=== PATIENT | female | born 1950 | race Caucasian/White ===

== ENCOUNTER 2017-02-16 16:11 | Inpatient (IN) | payer MEDICAID ==
[2017-02-16] MEDS ORDERED: Sodium Chloride 0.9% 1,000 ML IV ONE (16:26)
[2017-02-16 16:40] LABS: BASO # 0.1 K/uL (0.0-0.2); BASO % 0.9 % (0.0-2.0); EOS # 0.1 K/uL (0.0-0.7); EOS % 0.6 % (0.0-4.0); HEMATOCRIT 38.4 % (34.0-47.0); LYMPH # 1.8 K/uL (1.0-4.3); MEAN CELL VOLUME 79.2 fL (81.0-99.0); MEAN CORPUSCULAR HEMOGLOBIN 27.2 pg (27.0-31.0); MEAN CORPUSCULAR HGB CONC 34.3 g/dL (33.0-37.0); MEAN PLATELET VOLUME 6.5 fL (7.2-11.7); MONO # 0.5 K/uL (0.0-0.8); MONO % 6.1 % (0.0-10.0); RED CELL DISTRIBUTION WIDTH 13.3 % (11.5-14.5); WHITE BLOOD COUNT 8.8 K/uL (4.8-10.8)
[2017-02-16 16:48] LABS: CHLORIDE 78 mmol/L (98-107)
[2017-02-16 16:51] LABS: ALB/GLOB RATIO 1.3 (1.0-2.1); ALKALINE PHOSPHATASE 88 U/L (38-126); ALT/SGPT 40 U/L (9-52); AST/SGOT 73 U/L (14-36); BILIRUBIN,TOTAL 0.9 mg/dL (0.2-1.3); BLOOD UREA NITROGEN 20 mg/dL (7-17); CALCIUM 8.8 mg/dl (8.6-10.4); CARBON DIOXIDE 23 mmol/L (22-30); GFR AFRICAN-AMERICAN > 60; GLUCOSE,RANDOM 87 mg/dL (65-105)
--- NOTE | 2017-02-16 17:01 | C.PDOC ---
History Of Present Illness 66-year-old female presents to the emergency department with complaints of generalized weakness and "a lot of stress in her body." Patient states she had bloodwork done recently as an outpatient, which was "normal". Patient states she suffers from "severe dehydration", and notes a history of "heart racing sometimes." Patient denies chest pain, shortness of breath, abdominal pain, nausea/vomiting/diarrhea. Time Seen by Provider: 02/16/17 16:17 Chief Complaint (Nursing): Weakness/Neurological Deficit History Per: Patient History/Exam Limitations: other (behaving bizarrely) Onset/Duration Of Symptoms: Days Current Symptoms Are (Timing): Still Present Past Medical History Reviewed: Historical Data, Nursing Documentation, Vital Signs Vital Signs: Last Vital Signs Temp 97.6 F 02/16/17 18:28 Pulse 74 02/16/17 18:28 Resp 18 02/16/17 18:28 BP 162/95 H 02/16/17 18:28 Pulse Ox 99 02/16/17 18:28 - Medical History PMH: HTN, Hyperlipidemia Family History: States: No Known Family Hx - Social History Hx Alcohol Use: No Hx Substance Use: No Review Of Systems Except As Marked, All Systems Reviewed And Found Negative. Constitutional: Positive for: Weakness. Negative for: Fever Cardiovascular: Negative for: Chest Pain, Palpitations Respiratory: Negative for: Cough, Shortness of Breath Gastrointestinal: Negative for: Nausea, Vomiting Neurological: Negative for: Weakness, Numbness, Headache, Dizziness Physical Exam - Physical Exam Appears: Non-toxic, Other (appears anxious, behaving bizarrely ) Skin: Warm, Dry, No Rash Head: Normacephalic Eye(s): bilateral: Normal Inspection, PERRL, EOMI Oral Mucosa: Moist Neck: Supple Cardiovascular: Rhythm Regular, No Murmur Respiratory: Normal Breath Sounds, No Rales, No Rhonchi, No Wheezing Gastrointestinal/Abdominal: Normal Exam, Bowel Sounds, Soft, No Tenderness Extremity: Normal ROM, No Pedal Edema, No Calf Tenderness Extremity: Bilateral: Atraumatic, Normal Color And Temperature, Normal ROM Pulses: Left Dorsalis Pedis: Normal, Right Dorsalis Pedis: Normal Neurological/Psych: Oriented x3, Other (bizarre, pressured affect) ED Course And Treatment - Laboratory Results Result Diagrams: 02/16/17 16:37 02/16/17 16:37 ECG: Interpreted By Me, Viewed By Me (sinus rhythm 75 bpm, PVCs, normal axis, RBBB, no acute ST changes) ECG Interpretation: Abnormal O2 Sat by Pulse Oximetry: 97 (ra) Pulse Ox Interpretation: Normal Progress Note: Blood work, UA, UDS, EKG ordered and reviewed. Patient given initial IV NS bolus. Patient refused CXR when tech arrives, because she does not know "if it will be covered by insurance". 5:35pm- Discussed patient with insurance plan specialist Dr. Charles, since she appears very anxious and bizarre with pressured speech, this could be AMS due to hyponatremia - he recommends starting hypertonic saline at 20ml/hr. Agrees with ICU admission. Hospitalist service also aware and agrees with admission. No prior ED visits available for review to determine if mental status is patient's baseline. Critical Care Time - Critical Care Note Total Time (in mins): 35 Documented critical care: time excludes all time spent performing seperately billable procedures. Disposition - Disposition Disposition: HOSPITALIZED Disposition Time: 17:26 Condition: SERIOUS - Clinical Impression Clinical Impression: Hyponatremia, Altered mental status - Scribe Statement The provider has reviewed the documentation as recorded by the Scribe (Ronda Lim) All medical record entries made by the Scribe were at my direction and personally dictated by me. I have reviewed the chart and agree that the record accurately reflects my personal performance of the history, physical exam, medical decision making, and the department course for this patient. I have also personally directed, reviewed, and agree with the discharge instructions and disposition. Decision To Admit - Pt Status Changed To: Hospital Disposition Of: Inpatient - Admit Certification Admit to Inpatient:: After my assessment, the patient will require hospitalization for at least two midnights. This is because of the severity of symptoms shown, intensity of services needed, and/or the medical risk in this patient being treated as an outpatient. - InPatient: Physician Admission Certification: I certify that this patient requires 2 or more midnights of care for the following reason:: see notes - . Bed Request Type: ICU Admitting Physician: Stefanie Guerrero Patient Diagnosis: Hyponatremia, Altered mental status
[2017-02-16 17:12] LABS: RBC URINE < 1 /hpf (0-3); URINE BILIRUBIN NEGATIVE (NEGATIVE); URINE BLOOD 1+ (NEGATIVE); URINE COLOR Colorless (YELLOW); URINE GLUCOSE (UA) NORMAL (Normal); URINE KETONE NEGATIVE (NEGATIVE); URINE LEUKOCYTE ESTERASE NEG Leu/uL (Negative); URINE PROTEIN NEGATIVE (NEGATIVE); URINE UROBILINOGEN NORMAL mg/dL (0.2-1.0); WBC URINE < 1 /hpf (0-5)
[2017-02-16 17:18] LABS: POTASSIUM 4.4 mmol/L (3.6-5.2); SODIUM 113 mmol/L (132-148)
[2017-02-16] MEDS ORDERED: Sodium Chloride 3% 500 ML IV ONE (17:37)
--- NOTE | 2017-02-16 18:22 | CP.PCM.CON ---
History of Present Illness - History of Present Illness History of Present Illness: ICU evaluation for hyponatremia Patient is 66-year-old female with hypertension who presented to emergency room complaining of generalized weakness and a lot of stress. Patient states she drinks lots of water for dehydration( 15-20 glasses of water every day). On and off shortness of breath, but denies chest pain, denies nausea vomiting, denies abdominal pain, denies fevers chills. In the emergency room patient found to have hyponatremia and started on 3% sodium chloride Review of Systems - Review of Systems All systems: reviewed and no additional remarkable complaints except ( Generalized weakness) Past Patient History - Past Social History Smoking Status: Never Smoked - CARDIAC Hx Hypertension: Yes - PSYCHIATRIC Hx Substance Use: No - SURGICAL HISTORY Hx Surgeries: No Meds Allergies/Adverse Reactions: Allergies Allergy/AdvReac Type Severity Reaction Status Date / Time No Known Allergies Allergy Unverified 02/16/17 16:18 - Medications Medications: Current Medications Sodium Chloride (Hypertonic Saline 3%) 500 mls @ 20 mls/hr IV .Q24H ONE Stop: 02/17/17 17:36 Physical Exam - Constitutional Appears: No Acute Distress - Head Exam Head Exam: ATRAUMATIC, NORMOCEPHALIC - Eye Exam Eye Exam: Normal appearance - ENT Exam ENT Exam: Mucous Membranes Moist - Neck Exam Neck exam: Positive for: Normal Inspection - Respiratory Exam Respiratory Exam: Clear to Auscultation Bilateral - Cardiovascular Exam Cardiovascular Exam: REGULAR RHYTHM - GI/Abdominal Exam GI & Abdominal Exam: Normal Bowel Sounds, Soft - Extremities Exam Extremities exam: Positive for: normal inspection - Neurological Exam Neurological exam: Alert - Psychiatric Exam Psychiatric exam: Anxious Results - Vital Signs Recent Vital Signs: Last Vital Signs Temp 97.9 F 02/16/17 16:19 Pulse 72 02/16/17 17:10 Resp 16 02/16/17 17:10 BP 155/82 H 02/16/17 17:10 Pulse Ox 97 02/16/17 17:51 - Labs Result Diagrams: 02/16/17 16:37 02/16/17 16:37 Labs: Laboratory Results - last 24 hr 02/16/17 02/16/17 02/16/17 16:37 16:37 16:47 WBC 8.8 RBC 4.84 Hgb 13.2 Hct 38.4 MCV 79.2 L MCH 27.2 MCHC 34.3 RDW 13.3 Plt Count 363 MPV 6.5 L Neut % (Auto) 72.4 Lymph % (Auto) 20.0 [place] % (Auto) 6.1 Eos % (Auto) 0.6 Baso % (Auto) 0.9 Neut # 6.4 Lymph # 1.8 [place] # 0.5 Eos # 0.1 Baso # 0.1 Sodium 113 L* Potassium 4.4 Chloride 78 L Carbon Dioxide 23 Anion Gap 16 BUN 20 H Creatinine 0.6 L Est GFR ( Amer) > 60 Est GFR (Non-Af Amer) > 60 POC Glucose (mg/dL) Random Glucose 87 Serum Osmolality Calcium 8.8 Total Bilirubin 0.9 AST 73 H ALT 40 Alkaline Phosphatase 88 Total Creatine Kinase 631 H CK-MB (Mass) 12.3 H Troponin I 0.0140 Total Protein 8.0 Albumin 4.5 Globulin 3.4 Albumin/Globulin Ratio 1.3 TSH 3rd Generation Urine Color Colorless Urine Clarity Clear Urine pH 7.0 Ur Specific [place] 1.003 Urine Protein Negative Urine Glucose (UA) Normal Urine Ketones Negative Urine Blood 1+ H Urine Nitrate Negative Urine Bilirubin Negative Urine Urobilinogen Normal Ur Leukocyte Esterase Neg Urine WBC (Auto) < 1 Urine RBC (Auto) < 1 Urine Osmolality Ur Random Sodium Ur Random Potassium Urine Opiates Screen Urine Methadone Screen Ur Barbiturates Screen Ur Phencyclidine Scrn Ur Amphetamines Screen U Benzodiazepines Scrn U Oth Cocaine Metabols U Cannabinoids Screen 02/16/17 02/16/17 02/16/17 17:04 17:04 17:07 WBC RBC Hgb Hct MCV MCH MCHC RDW Plt Count MPV Neut % (Auto) Lymph % (Auto) [place] % (Auto) Eos % (Auto) Baso % (Auto) Neut # Lymph # [place] # Eos # Baso # Sodium Potassium Chloride Carbon Dioxide Anion Gap BUN Creatinine Est GFR ( Amer) Est GFR (Non-Af Amer) POC Glucose (mg/dL) 90 Random Glucose Serum Osmolality Calcium Total Bilirubin AST ALT Alkaline Phosphatase Total Creatine Kinase CK-MB (Mass) Troponin I Total Protein Albumin Globulin Albumin/Globulin Ratio TSH 3rd Generation 2.42 Urine Color Urine Clarity Urine pH Ur Specific [place] Urine Protein Urine Glucose (UA) Urine Ketones Urine Blood Urine Nitrate Urine Bilirubin Urine Urobilinogen Ur Leukocyte Esterase Urine WBC (Auto) Urine RBC (Auto) Urine Osmolality Ur Random Sodium Ur Random Potassium Urine Opiates Screen Negative Urine Methadone Screen Negative Ur Barbiturates Screen Negative Ur Phencyclidine Scrn Negative Ur Amphetamines Screen Negative U Benzodiazepines Scrn Negative U Oth Cocaine Metabols Negative U Cannabinoids Screen Negative 02/16/17 02/16/17 17:43 17:56 WBC RBC Hgb Hct MCV MCH MCHC RDW Plt Count MPV Neut % (Auto) Lymph % (Auto) [place] % (Auto) Eos % (Auto) Baso % (Auto) Neut # Lymph # [place] # Eos # Baso # Sodium Potassium Chloride Carbon Dioxide Anion Gap BUN Creatinine Est GFR ( Amer) Est GFR (Non-Af Amer) POC Glucose (mg/dL) Random Glucose Serum Osmolality 253.0 L Calcium Total Bilirubin AST ALT Alkaline Phosphatase Total Creatine Kinase CK-MB (Mass) Troponin I Total Protein Albumin Globulin Albumin/Globulin Ratio TSH 3rd Generation Urine Color Urine Clarity Urine pH Ur Specific [place] Urine Protein Urine Glucose (UA) Urine Ketones Urine Blood Urine Nitrate Urine Bilirubin Urine Urobilinogen Ur Leukocyte Esterase Urine WBC (Auto) Urine RBC (Auto) Urine Osmolality 144.0 L Ur Random Sodium 19 Ur Random Potassium 16.6 Urine Opiates Screen Urine Methadone Screen Ur Barbiturates Screen Ur Phencyclidine Scrn Ur Amphetamines Screen U Benzodiazepines Scrn U Oth Cocaine Metabols U Cannabinoids Screen Assessment & Plan (1) Hyponatremia syndrome Assessment and Plan: 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
--- NOTE | 2017-02-16 20:05 | CP.PCM.HP ---
<Nick Milton - Last Filed: 02/16/17 20:00> History of Present Illness - History of Present Illness History of Present Illness: PGY-1 H&P for Dr. Guerrero CC: "too much stress on body" This is a 66 year old female with PMHx HTN, HLD who comes complaining of feeling fatigued for the past 2 months. Patient also complaining of intermittent shortness of breath and palpitations. Patient states that she went to her PMD who told her that she was experiencing this due to severe dehydration. Patient states that she was suffering from severe dehydration. After this, patient began drinking 20 glasses of water and eating more meat to keep up her energy. Patient states that this has been progressively worsening and for the last couple of days, she has been unable to tolerate food, particularly spicy food. Patient denies fever, chills, dizziness, nausea, vomiting, chest pain, dysuria, hematuria, hematochezia. PMHx: HTN, HLD PSHx: Denies Allergies: NKDA Social: Denies ever smoking. Denies alcohol, drugs. Unemployed, lives by herself in a senior center. Family Hx: Denies Home meds: Lipitor, Chlorthalidone. Doses unspecified. PMD: Dr. Damaso Ramírez from [facility] Present on Admission - Present on Admission Any Indicators Present on Admission: No Review of Systems - Constitutional Constitutional: absent: Chills, Fever - EENT Eyes: absent: Change in Vision Ears: absent: Decreased Hearing Nose/Mouth/Throat: absent: Nasal Congestion - Cardiovascular Cardiovascular: Palpitations. absent: Chest Pain - Respiratory Respiratory: Dyspnea. absent: Cough - Gastrointestinal Gastrointestinal: Abdominal Pain. absent: Constipation, Diarrhea, Hematochezia , Nausea, Vomiting - Genitourinary Genitourinary: absent: Dysuria, Hematuria - Musculoskeletal Musculoskeletal: absent: Back Pain - Integumentary Integumentary: absent: Rash - Neurological Neurological: Weakness. absent: Dizziness, Numbness, Headaches, Tingling - Psychiatric Psychiatric: Anxiety - Endocrine Endocrine: Fatigue. absent: Palpitations Past Patient History - Past Medical History & Family History Past Medical History?: Yes - Past Social History Smoking Status: Never Smoked - CARDIAC Hx Hypertension: Yes - PULMONARY Hx Respiratory Disorders: No - NEUROLOGICAL Hx Neurological Disorder: No - HEENT Hx HEENT Problems: No - RENAL Hx Chronic Kidney Disease: No - ENDOCRINE/METABOLIC Hx Endocrine Disorders: No - HEMATOLOGICAL/ONCOLOGICAL Hx Blood Disorders: No - INTEGUMENTARY Hx Dermatological Problems: No - MUSCULOSKELETAL/RHEUMATOLOGICAL Hx Musculoskeletal Disorders: No Hx Falls: No - GASTROINTESTINAL Hx Gastrointestinal Disorders: No - GENITOURINARY/GYNECOLOGICAL Hx Genitourinary Disorders: No - PSYCHIATRIC Hx Substance Use: No - SURGICAL HISTORY Hx Surgeries: No - ANESTHESIA Hx Anesthesia: No Meds Allergies/Adverse Reactions: Allergies Allergy/AdvReac Type Severity Reaction Status Date / Time No Known Allergies Allergy Unverified 02/16/17 16:18 Physical Exam - Constitutional Appears: No Acute Distress - Head Exam Head Exam: ATRAUMATIC, NORMOCEPHALIC - Eye Exam Eye Exam: EOMI, PERRL - ENT Exam ENT Exam: Mucous Membranes Dry - Respiratory Exam Respiratory Exam: Clear to Auscultation Bilateral. absent: Rales, Rhonchi, Wheezes - Cardiovascular Exam Cardiovascular Exam: REGULAR RHYTHM, +S1, +S2 - GI/Abdominal Exam GI & Abdominal Exam: Mass (left sided mass palpated on physical exam), Normal Bowel Sounds, Soft. absent: Tenderness - Extremities Exam Extremities exam: Negative for: calf tenderness, pedal edema - Neurological Exam Neurological exam: Alert, CN II-XII Intact, Oriented x3 - Psychiatric Exam Psychiatric exam: Anxious (perseverating that she will "lose my life") - Skin Skin Exam: Dry, Warm Results - Vital Signs Recent Vital Signs: Last Vital Signs Temp 97.6 F 02/16/17 18:28 Pulse 80 02/16/17 19:21 Resp 18 02/16/17 19:21 BP 177/99 H 02/16/17 19:21 Pulse Ox 96 02/16/17 19:21 - Labs Result Diagrams: 02/16/17 16:37 02/16/17 16:37 Labs: Laboratory Results - last 24 hr 02/16/17 02/16/17 02/16/17 16:37 16:37 16:47 WBC 8.8 RBC 4.84 Hgb 13.2 Hct 38.4 MCV 79.2 L MCH 27.2 MCHC 34.3 RDW 13.3 Plt Count 363 MPV 6.5 L Neut % (Auto) 72.4 Lymph % (Auto) 20.0 [place] % (Auto) 6.1 Eos % (Auto) 0.6 Baso % (Auto) 0.9 Neut # 6.4 Lymph # 1.8 [place] # 0.5 Eos # 0.1 Baso # 0.1 Sodium 113 L* Potassium 4.4 Chloride 78 L Carbon Dioxide 23 Anion Gap 16 BUN 20 H Creatinine 0.6 L Est GFR ( Amer) > 60 Est GFR (Non-Af Amer) > 60 POC Glucose (mg/dL) Random Glucose 87 Serum Osmolality Calcium 8.8 Total Bilirubin 0.9 AST 73 H ALT 40 Alkaline Phosphatase 88 Total Creatine Kinase 631 H CK-MB (Mass) 12.3 H Troponin I 0.0140 Total Protein 8.0 Albumin 4.5 Globulin 3.4 Albumin/Globulin Ratio 1.3 TSH 3rd Generation Urine Color Colorless Urine Clarity Clear Urine pH 7.0 Ur Specific [place] 1.003 Urine Protein Negative Urine Glucose (UA) Normal Urine Ketones Negative Urine Blood 1+ H Urine Nitrate Negative Urine Bilirubin Negative Urine Urobilinogen Normal Ur Leukocyte Esterase Neg Urine WBC (Auto) < 1 Urine RBC (Auto) < 1 Urine Osmolality Ur Random Sodium Ur Random Potassium Urine Opiates Screen Urine Methadone Screen Ur Barbiturates Screen Ur Phencyclidine Scrn Ur Amphetamines Screen U Benzodiazepines Scrn U Oth Cocaine Metabols U Cannabinoids Screen 02/16/17 02/16/17 02/16/17 17:04 17:04 17:07 WBC RBC Hgb Hct MCV MCH MCHC RDW Plt Count MPV Neut % (Auto) Lymph % (Auto) [place] % (Auto) Eos % (Auto) Baso % (Auto) Neut # Lymph # [place] # Eos # Baso # Sodium Potassium Chloride Carbon Dioxide Anion Gap BUN Creatinine Est GFR ( Amer) Est GFR (Non-Af Amer) POC Glucose (mg/dL) 90 Random Glucose Serum Osmolality Calcium Total Bilirubin AST ALT Alkaline Phosphatase Total Creatine Kinase CK-MB (Mass) Troponin I Total Protein Albumin Globulin Albumin/Globulin Ratio TSH 3rd Generation 2.42 Urine Color Urine Clarity Urine pH Ur Specific [place] Urine Protein Urine Glucose (UA) Urine Ketones Urine Blood Urine Nitrate Urine Bilirubin Urine Urobilinogen Ur Leukocyte Esterase Urine WBC (Auto) Urine RBC (Auto) Urine Osmolality Ur Random Sodium Ur Random Potassium Urine Opiates Screen Negative Urine Methadone Screen Negative Ur Barbiturates Screen Negative Ur Phencyclidine Scrn Negative Ur Amphetamines Screen Negative U Benzodiazepines Scrn Negative U Oth Cocaine Metabols Negative U Cannabinoids Screen Negative 02/16/17 02/16/17 17:43 17:56 WBC RBC Hgb Hct MCV MCH MCHC RDW Plt Count MPV Neut % (Auto) Lymph % (Auto) [place] % (Auto) Eos % (Auto) Baso % (Auto) Neut # Lymph # [place] # Eos # Baso # Sodium Potassium Chloride Carbon Dioxide Anion Gap BUN Creatinine Est GFR ( Amer) Est GFR (Non-Af Amer) POC Glucose (mg/dL) Random Glucose Serum Osmolality 253.0 L Calcium Total Bilirubin AST ALT Alkaline Phosphatase Total Creatine Kinase CK-MB (Mass) Troponin I Total Protein Albumin Globulin Albumin/Globulin Ratio TSH 3rd Generation Urine Color Urine Clarity Urine pH Ur Specific [place] Urine Protein Urine Glucose (UA) Urine Ketones Urine Blood Urine Nitrate Urine Bilirubin Urine Urobilinogen Ur Leukocyte Esterase Urine WBC (Auto) Urine RBC (Auto) Urine Osmolality 144.0 L Ur Random Sodium 19 Ur Random Potassium 16.6 Urine Opiates Screen Urine Methadone Screen Ur Barbiturates Screen Ur Phencyclidine Scrn Ur Amphetamines Screen U Benzodiazepines Scrn U Oth Cocaine Metabols U Cannabinoids Screen Assessment & Plan - Assessment and Plan (Free Text) Plan: 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 Yolanda Milton PGY-1 <Stefanie Guerrero - Last Filed: 02/16/17 20:39> Results - Vital Signs Recent Vital Signs: Last Vital Signs Temp 97.6 F 02/16/17 18:28 Pulse 80 02/16/17 19:21 Resp 18 02/16/17 19:21 BP 177/99 H 02/16/17 19:21 Pulse Ox 96 02/16/17 19:21 - Labs Result Diagrams: 02/16/17 16:37 02/16/17 16:37 Labs: Laboratory Results - last 24 hr 02/16/17 02/16/17 02/16/17 16:37 16:37 16:47 WBC 8.8 RBC 4.84 Hgb 13.2 Hct 38.4 MCV 79.2 L MCH 27.2 MCHC 34.3 RDW 13.3 Plt Count 363 MPV 6.5 L Neut % (Auto) 72.4 Lymph % (Auto) 20.0 [place] % (Auto) 6.1 Eos % (Auto) 0.6 Baso % (Auto) 0.9 Neut # 6.4 Lymph # 1.8 [place] # 0.5 Eos # 0.1 Baso # 0.1 Sodium 113 L* Potassium 4.4 Chloride 78 L Carbon Dioxide 23 Anion Gap 16 BUN 20 H Creatinine 0.6 L Est GFR ( Amer) > 60 Est GFR (Non-Af Amer) > 60 POC Glucose (mg/dL) Random Glucose 87 Serum Osmolality Calcium 8.8 Total Bilirubin 0.9 AST 73 H ALT 40 Alkaline Phosphatase 88 Total Creatine Kinase 631 H CK-MB (Mass) 12.3 H Troponin I 0.0140 Total Protein 8.0 Albumin 4.5 Globulin 3.4 Albumin/Globulin Ratio 1.3 TSH 3rd Generation Urine Color Colorless Urine Clarity Clear Urine pH 7.0 Ur Specific [place] 1.003 Urine Protein Negative Urine Glucose (UA) Normal Urine Ketones Negative Urine Blood 1+ H Urine Nitrate Negative Urine Bilirubin Negative Urine Urobilinogen Normal Ur Leukocyte Esterase Neg Urine WBC (Auto) < 1 Urine RBC (Auto) < 1 Urine Osmolality Ur Random Sodium Ur Random Potassium Urine Opiates Screen Urine Methadone Screen Ur Barbiturates Screen Ur Phencyclidine Scrn Ur Amphetamines Screen U Benzodiazepines Scrn U Oth Cocaine Metabols U Cannabinoids Screen 02/16/17 02/16/17 02/16/17 17:04 17:04 17:07 WBC RBC Hgb Hct MCV MCH MCHC RDW Plt Count MPV Neut % (Auto) Lymph % (Auto) [place] % (Auto) Eos % (Auto) Baso % (Auto) Neut # Lymph # [place] # Eos # Baso # Sodium Potassium Chloride Carbon Dioxide Anion Gap BUN Creatinine Est GFR ( Amer) Est GFR (Non-Af Amer) POC Glucose (mg/dL) 90 Random Glucose Serum Osmolality Calcium Total Bilirubin AST ALT Alkaline Phosphatase Total Creatine Kinase CK-MB (Mass) Troponin I Total Protein Albumin Globulin Albumin/Globulin Ratio TSH 3rd Generation 2.42 Urine Color Urine Clarity Urine pH Ur Specific [place] Urine Protein Urine Glucose (UA) Urine Ketones Urine Blood Urine Nitrate Urine Bilirubin Urine Urobilinogen Ur Leukocyte Esterase Urine WBC (Auto) Urine RBC (Auto) Urine Osmolality Ur Random Sodium Ur Random Potassium Urine Opiates Screen Negative Urine Methadone Screen Negative Ur Barbiturates Screen Negative Ur Phencyclidine Scrn Negative Ur Amphetamines Screen Negative U Benzodiazepines Scrn Negative U Oth Cocaine Metabols Negative U Cannabinoids Screen Negative 02/16/17 02/16/17 17:43 17:56 WBC RBC Hgb Hct MCV MCH MCHC RDW Plt Count MPV Neut % (Auto) Lymph % (Auto) [place] % (Auto) Eos % (Auto) Baso % (Auto) Neut # Lymph # [place] # Eos # Baso # Sodium Potassium Chloride Carbon Dioxide Anion Gap BUN Creatinine Est GFR ( Amer) Est GFR (Non-Af Amer) POC Glucose (mg/dL) Random Glucose Serum Osmolality 253.0 L Calcium Total Bilirubin AST ALT Alkaline Phosphatase Total Creatine Kinase CK-MB (Mass) Troponin I Total Protein Albumin Globulin Albumin/Globulin Ratio TSH 3rd Generation Urine Color Urine Clarity Urine pH Ur Specific [place] Urine Protein Urine Glucose (UA) Urine Ketones Urine Blood Urine Nitrate Urine Bilirubin Urine Urobilinogen Ur Leukocyte Esterase Urine WBC (Auto) Urine RBC (Auto) Urine Osmolality 144.0 L Ur Random Sodium 19 Ur Random Potassium 16.6 Urine Opiates Screen Urine Methadone Screen Ur Barbiturates Screen Ur Phencyclidine Scrn Ur Amphetamines Screen U Benzodiazepines Scrn U Oth Cocaine Metabols U Cannabinoids Screen Attending/Attestation - Attestation I have personally seen and examined this patient.: Yes I have fully participated in the care of the patient.: Yes I have reviewed all pertinent clinical information: Yes Notes (Text): This is a 66years old female with history of HTN and HLD came to ER for weakness.She drinks about 20 glass of water daily and she was taking chlorthalidone for hypertension.On admission her sodium is 113.She is alert oriented x3 with no focal weakness Patient was seen and examined with resident. Agree with the assessment and the plan documented d/w marker assembler 1.Severe hyponatremia ICU care Hypertonic saline as per marker assembler follow Serum osmolality, Urine osmolality Urine sodium,Urine chloride,Serial BMP 2.HTN -Norvasc 3.DVT and GI prophylaxis
[2017-02-16 23:34] LABS: CHLORIDE 89 mmol/L (98-107); SODIUM 122 mmol/L (132-148)
[2017-02-16 23:35] LABS: POTASSIUM 3.3 mmol/L (3.6-5.2)
[2017-02-16 23:37] LABS: GFR AFRICAN-AMERICAN > 60
[2017-02-16 23:38] LABS: BLOOD UREA NITROGEN 15 mg/dL (7-17); CALCIUM 8.6 mg/dl (8.6-10.4); CARBON DIOXIDE 26 mmol/L (22-30); GLUCOSE,RANDOM 89 mg/dL (65-105)
[2017-02-17 06:47] LABS: BASO # 0.1 K/uL (0.0-0.2); BASO % 0.9 % (0.0-2.0); EOS # 0.1 K/uL (0.0-0.7); EOS % 2.1 % (0.0-4.0); HEMATOCRIT 37.9 % (34.0-47.0); LYMPH # 1.7 K/uL (1.0-4.3); LYMPH % 26.2 % (20.0-40.0); MEAN CORPUSCULAR HGB CONC 34.6 g/dL (33.0-37.0); MEAN PLATELET VOLUME 6.4 fL (7.2-11.7); MONO # 0.6 K/uL (0.0-0.8); MONO % 9.9 % (0.0-10.0); WHITE BLOOD COUNT 6.3 K/uL (4.8-10.8)
[2017-02-17 06:56] LABS: CHLORIDE 88 mmol/L (98-107); SODIUM 125 mmol/L (132-148)
[2017-02-17 06:57] LABS: POTASSIUM 3.4 mmol/L (3.6-5.2)
[2017-02-17 06:59] LABS: ALB/GLOB RATIO 1.1 (1.0-2.1); ALKALINE PHOSPHATASE 85 U/L (38-126); ALT/SGPT 51 U/L (9-52); AST/SGOT 43 U/L (14-36); BILIRUBIN,TOTAL 0.8 mg/dL (0.2-1.3); BLOOD UREA NITROGEN 12 mg/dL (7-17); CARBON DIOXIDE 24 mmol/L (22-30); GFR AFRICAN-AMERICAN > 60; GLUCOSE,RANDOM 89 mg/dL (65-105); PHOSPHOROUS 3.6 mg/dL (2.5-4.5); TOTAL PROTEIN 7.1 g/dL (6.3-8.3)
[2017-02-17 07:00] LABS: CALCIUM 8.9 mg/dl (8.6-10.4)
[2017-02-17] MEDS ORDERED: Potassium Chloride 20 mEq ER Tab PO SCH (10:00)
[2017-02-17] MEDS: Enoxaparin 40 mg Syringe SC SCH (10:07)
[2017-02-17 10:53] LABS: CHLORIDE 88 mmol/L (98-107)
[2017-02-17 10:54] LABS: POTASSIUM 3.5 mmol/L (3.6-5.2); SODIUM 126 mmol/L (132-148)
[2017-02-17 10:56] LABS: ALB/GLOB RATIO 1.2 (1.0-2.1); ALKALINE PHOSPHATASE 106 U/L (38-126); ALT/SGPT 48 U/L (9-52); AST/SGOT 53 U/L (14-36); BILIRUBIN,TOTAL 0.8 mg/dL (0.2-1.3); BLOOD UREA NITROGEN 11 mg/dL (7-17); CALCIUM 9.1 mg/dl (8.6-10.4); CARBON DIOXIDE 29 mmol/L (22-30); GFR AFRICAN-AMERICAN > 60; GLUCOSE,RANDOM 93 mg/dL (65-105); TOTAL PROTEIN 7.7 g/dL (6.3-8.3)
--- NOTE | 2017-02-17 11:08 | CP.CCUPN ---
CCU Subjective - Physician Review Subjective (Free Text): Patient was seen and examined at bedside. Patient reports that she is doing well. Patient is alert, awake and oriented. Patient denies chest pain, palpitations, SOB, nausea, vomiting, fever, chills, numbness/tingling but patient does admits to moderate weakness. Patient has no new complaints. Critical Care Time Spent (in minutes): 35 CCU Objective - Vital Signs / Intake & Output Vital Signs (Last 4 hours): Vital Signs Temp Pulse Resp BP Pulse Ox 02/17/17 10:21 64 14 139/81 02/17/17 09:21 61 13 137/79 02/17/17 08:21 64 16 142/77 02/17/17 08:20 77 20 02/17/17 08:10 62 10 L 98 02/17/17 08:00 98 F 64 16 97 02/17/17 07:50 64 15 97 02/17/17 07:40 73 19 96 02/17/17 07:30 65 14 97 02/17/17 07:21 65 14 132/77 96 02/17/17 07:20 65 14 97 02/17/17 07:10 67 15 98 Intake and Output (Last 8hrs): Intake & Output 02/16/17 02/17/17 02/17/17 22:59 06:59 14:59 Intake Total 420 100 0 Output Total 0 500 Balance 420 -400 0 Weight 127 lb 13.89 oz 130 lb Intake: Intake, IV Amount 100 40 Left Antecubital 100 40 Oral 320 60 0 Output: Urine 500 Urine, Voided 500 Emesis 0 Other: Voiding Method Bedpan # Voids Urine, Voided 0 # Bowel Movements 0 - Physical Exam Head: Positive for: Atraumatic, Normocephalic Extroacular Muscles: Positive for: EOMI Mouth: Positive for: Moist Mucous Membranes Respiratory/Chest: Positive for: Clear to Auscultation, Good Air Exchange. Negative for: Respiratory Distress, Accessory Muscle Use Cardiovascular: Positive for: Regular Rate and Rhythm, Normal S1, S2 Abdomen: Positive for: Normal Bowel Sounds. Negative for: Tenderness, Distention, Peritoneal Signs Upper Extremity: Positive for: Normal Inspection Lower Extremity: Positive for: Normal Inspection, Swelling Neurological: Positive for: GCS=15, Speech Normal Skin: Positive for: Normal Color Psychiatric: Positive for: Alert, Oriented x 3 - Medications Active Medications: Active Medications Generic Name Dose Route Start Last Admin Trade Name Nalini PRN Reason Stop Dose Admin Amlodipine Besylate 5 mg 02/17/17 10:00 Norvasc PO DAILY [facility] Enoxaparin Sodium 40 mg 02/17/17 10:00 02/17/17 10:07 Lovenox SC 40 mg DAILY GENNARO Administration Famotidine 20 mg 02/17/17 10:00 02/17/17 10:08 Pepcid IVP 20 mg DAILY GENNARO Administration Pneumococcal Polyvalent Vaccine 0.5 ml 02/19/17 19:09 Pneumovax 23 Vaccine IM 02/19/17 19:10 .ONCE ONE Potassium Chloride 40 meq 02/17/17 10:00 K-Dur 20 Meq Er Tab PO DAILY [facility] - Patient Studies Lab Studies: Lab Studies 02/17/17 02/17/17 02/17/17 Range/Units 10:27 08:04 06:28 WBC 6.3 (4.8-10.8) K/uL RBC 4.68 (3.80-5.20) Mil/uL Hgb 13.1 (11.0-16.0) g/dL Hct 37.9 (34.0-47.0) % MCV 81.0 (81.0-99.0) fL MCH 28.0 (27.0-31.0) pg MCHC 34.6 (33.0-37.0) g/dL RDW 13.0 (11.5-14.5) % Plt Count 371 (130-400) K/uL MPV 6.4 L (7.2-11.7) fL Neut % (Auto) 60.9 (50.0-75.0) % Lymph % (Auto) 26.2 (20.0-40.0) % [place] % (Auto) 9.9 (0.0-10.0) % Eos % (Auto) 2.1 (0.0-4.0) % Baso % (Auto) 0.9 (0.0-2.0) % Neut # 3.8 (1.8-7.0) K/uL Lymph # 1.7 (1.0-4.3) K/uL [place] # 0.6 (0.0-0.8) K/uL Eos # 0.1 (0.0-0.7) K/uL Baso # 0.1 (0.0-0.2) K/uL Sodium 126 L (132-148) mmol/L Potassium 3.5 L (3.6-5.2) mmol/L Chloride 88 L (98-107) mmol/L Carbon Dioxide (22-30) mmol/L Anion Gap (10-20) BUN (7-17) mg/dL Creatinine (0.7-1.2) mg/dL Est GFR ( Amer) Est GFR (Non-Af Amer) POC Glucose (mg/dL) (65-110) mg/dL Random Glucose (65-105) mg/dL Serum Osmolality (272-300) mosm/kg Calcium (8.6-10.4) mg/dl Phosphorus (2.5-4.5) mg/dL Magnesium (1.6-2.3) mg/dL Total Bilirubin (0.2-1.3) mg/dL AST (14-36) U/L ALT (9-52) U/L Alkaline Phosphatase (38-126) U/L Total Creatine Kinase (30-135) U/L CK-MB (Mass) (0.0-3.38) ng/mL Troponin I (0.00-0.120) ng/mL Total Protein (6.3-8.3) g/dL Albumin 4.3 (3.5-5.0) g/dL Globulin (2.2-3.9) gm/dL Albumin/Globulin Ratio (1.0-2.1) TSH 3rd Generation (0.46-4.68) mIU/L Urine Color (YELLOW) Urine Clarity (Clear) Urine pH (5.0-8.0) Ur Specific [place] (1.003-1.030) Urine Protein (NEGATIVE) mg/dL Urine Glucose (UA) (Normal) mg/dL Urine Ketones (NEGATIVE) mg/dL Urine Blood (NEGATIVE) Urine Nitrate (NEGATIVE) Urine Bilirubin (NEGATIVE) Urine Urobilinogen (0.2-1.0) mg/dL Ur Leukocyte Esterase (Negative) Brianna/uL Urine WBC (Auto) (0-5) /hpf Urine RBC (Auto) (0-3) /hpf Urine Osmolality 143 L (300-1000) mosm/kg Ur Random Sodium 19 mmol/L Ur Random Potassium mmol/L Urine Opiates Screen (NEGATIVE) Urine Methadone Screen (NEGATIVE) Ur Barbiturates Screen (NEGATIVE) Ur Phencyclidine Scrn (NEGATIVE) Ur Amphetamines Screen (NEGATIVE) U Benzodiazepines Scrn (NEGATIVE) U Oth Cocaine Metabols (NEGATIVE) U Cannabinoids Screen (NEGATIVE) 02/17/17 02/16/17 02/16/17 Range/Units 06:28 23:23 17:56 WBC (4.8-10.8) K/uL RBC (3.80-5.20) Mil/uL Hgb (11.0-16.0) g/dL Hct (34.0-47.0) % MCV (81.0-99.0) fL MCH (27.0-31.0) pg MCHC (33.0-37.0) g/dL RDW (11.5-14.5) % Plt Count (130-400) K/uL MPV (7.2-11.7) fL Neut % (Auto) (50.0-75.0) % Lymph % (Auto) (20.0-40.0) % [place] % (Auto) (0.0-10.0) % Eos % (Auto) (0.0-4.0) % Baso % (Auto) (0.0-2.0) % Neut # (1.8-7.0) K/uL Lymph # (1.0-4.3) K/uL [place] # (0.0-0.8) K/uL Eos # (0.0-0.7) K/uL Baso # (0.0-0.2) K/uL Sodium 125 L 122 L (132-148) mmol/L Potassium 3.4 L 3.3 L (3.6-5.2) mmol/L Chloride 88 L 89 L (98-107) mmol/L Carbon Dioxide 24 26 (22-30) mmol/L Anion Gap 16 10 (10-20) BUN 12 15 (7-17) mg/dL Creatinine 0.5 L 0.6 L (0.7-1.2) mg/dL Est GFR ( Amer) > 60 > 60 Est GFR (Non-Af Amer) > 60 > 60 POC Glucose (mg/dL) (65-110) mg/dL Random Glucose 89 89 (65-105) mg/dL Serum Osmolality (272-300) mosm/kg Calcium 8.9 8.6 (8.6-10.4) mg/dl Phosphorus 3.6 (2.5-4.5) mg/dL Magnesium 2.0 (1.6-2.3) mg/dL Total Bilirubin 0.8 (0.2-1.3) mg/dL AST 43 H D (14-36) U/L ALT 51 (9-52) U/L Alkaline Phosphatase 85 (38-126) U/L Total Creatine Kinase (30-135) U/L CK-MB (Mass) (0.0-3.38) ng/mL Troponin I (0.00-0.120) ng/mL Total Protein 7.1 (6.3-8.3) g/dL Albumin 3.8 (3.5-5.0) g/dL Globulin 3.3 (2.2-3.9) gm/dL Albumin/Globulin Ratio 1.1 (1.0-2.1) TSH 3rd Generation (0.46-4.68) mIU/L Urine Color (YELLOW) Urine Clarity (Clear) Urine pH (5.0-8.0) Ur Specific [place] (1.003-1.030) Urine Protein (NEGATIVE) mg/dL Urine Glucose (UA) (Normal) mg/dL Urine Ketones (NEGATIVE) mg/dL Urine Blood (NEGATIVE) Urine Nitrate (NEGATIVE) Urine Bilirubin (NEGATIVE) Urine Urobilinogen (0.2-1.0) mg/dL Ur Leukocyte Esterase (Negative) Brianna/uL Urine WBC (Auto) (0-5) /hpf Urine RBC (Auto) (0-3) /hpf Urine Osmolality 144.0 L (300-1000) mosm/kg Ur Random Sodium 19 mmol/L Ur Random Potassium 16.6 mmol/L Urine Opiates Screen (NEGATIVE) Urine Methadone Screen (NEGATIVE) Ur Barbiturates Screen (NEGATIVE) Ur Phencyclidine Scrn (NEGATIVE) Ur Amphetamines Screen (NEGATIVE) U Benzodiazepines Scrn (NEGATIVE) U Oth Cocaine Metabols (NEGATIVE) U Cannabinoids Screen (NEGATIVE) 02/16/17 02/16/17 02/16/17 Range/Units 17:43 17:07 17:04 WBC (4.8-10.8) K/uL RBC (3.80-5.20) Mil/uL Hgb (11.0-16.0) g/dL Hct (34.0-47.0) % MCV (81.0-99.0) fL MCH (27.0-31.0) pg MCHC (33.0-37.0) g/dL RDW (11.5-14.5) % Plt Count (130-400) K/uL MPV (7.2-11.7) fL Neut % (Auto) (50.0-75.0) % Lymph % (Auto) (20.0-40.0) % [place] % (Auto) (0.0-10.0) % Eos % (Auto) (0.0-4.0) % Baso % (Auto) (0.0-2.0) % Neut # (1.8-7.0) K/uL Lymph # (1.0-4.3) K/uL [place] # (0.0-0.8) K/uL Eos # (0.0-0.7) K/uL Baso # (0.0-0.2) K/uL Sodium (132-148) mmol/L Potassium (3.6-5.2) mmol/L Chloride (98-107) mmol/L Carbon Dioxide (22-30) mmol/L Anion Gap (10-20) BUN (7-17) mg/dL Creatinine (0.7-1.2) mg/dL Est GFR ( Amer) Est GFR (Non-Af Amer) POC Glucose (mg/dL) 90 (65-110) mg/dL Random Glucose (65-105) mg/dL Serum Osmolality 253.0 L (272-300) mosm/kg Calcium (8.6-10.4) mg/dl Phosphorus (2.5-4.5) mg/dL Magnesium (1.6-2.3) mg/dL Total Bilirubin (0.2-1.3) mg/dL AST (14-36) U/L ALT (9-52) U/L Alkaline Phosphatase (38-126) U/L Total Creatine Kinase (30-135) U/L CK-MB (Mass) (0.0-3.38) ng/mL Troponin I (0.00-0.120) ng/mL Total Protein (6.3-8.3) g/dL Albumin (3.5-5.0) g/dL Globulin (2.2-3.9) gm/dL Albumin/Globulin Ratio (1.0-2.1) TSH 3rd Generation 2.42 (0.46-4.68) mIU/L Urine Color (YELLOW) Urine Clarity (Clear) Urine pH (5.0-8.0) Ur Specific [place] (1.003-1.030) Urine Protein (NEGATIVE) mg/dL Urine Glucose (UA) (Normal) mg/dL Urine Ketones (NEGATIVE) mg/dL Urine Blood (NEGATIVE) Urine Nitrate (NEGATIVE) Urine Bilirubin (NEGATIVE) Urine Urobilinogen (0.2-1.0) mg/dL Ur Leukocyte Esterase (Negative) Brianna/uL Urine WBC (Auto) (0-5) /hpf Urine RBC (Auto) (0-3) /hpf Urine Osmolality (300-1000) mosm/kg Ur Random Sodium mmol/L Ur Random Potassium mmol/L Urine Opiates Screen (NEGATIVE) Urine Methadone Screen (NEGATIVE) Ur Barbiturates Screen (NEGATIVE) Ur Phencyclidine Scrn (NEGATIVE) Ur Amphetamines Screen (NEGATIVE) U Benzodiazepines Scrn (NEGATIVE) U Oth Cocaine Metabols (NEGATIVE) U Cannabinoids Screen (NEGATIVE) 02/16/17 02/16/17 02/16/17 Range/Units 17:04 16:47 16:37 WBC (4.8-10.8) K/uL RBC (3.80-5.20) Mil/uL Hgb (11.0-16.0) g/dL Hct (34.0-47.0) % MCV (81.0-99.0) fL MCH (27.0-31.0) pg MCHC (33.0-37.0) g/dL RDW (11.5-14.5) % Plt Count (130-400) K/uL MPV (7.2-11.7) fL Neut % (Auto) (50.0-75.0) % Lymph % (Auto) (20.0-40.0) % [place] % (Auto) (0.0-10.0) % Eos % (Auto) (0.0-4.0) % Baso % (Auto) (0.0-2.0) % Neut # (1.8-7.0) K/uL Lymph # (1.0-4.3) K/uL [place] # (0.0-0.8) K/uL Eos # (0.0-0.7) K/uL Baso # (0.0-0.2) K/uL Sodium 113 L* (132-148) mmol/L Potassium 4.4 (3.6-5.2) mmol/L Chloride 78 L (98-107) mmol/L Carbon Dioxide 23 (22-30) mmol/L Anion Gap 16 (10-20) BUN 20 H (7-17) mg/dL Creatinine 0.6 L (0.7-1.2) mg/dL Est GFR ( Amer) > 60 Est GFR (Non-Af Amer) > 60 POC Glucose (mg/dL) (65-110) mg/dL Random Glucose 87 (65-105) mg/dL Serum Osmolality (272-300) mosm/kg Calcium 8.8 (8.6-10.4) mg/dl Phosphorus (2.5-4.5) mg/dL Magnesium (1.6-2.3) mg/dL Total Bilirubin 0.9 (0.2-1.3) mg/dL AST 73 H (14-36) U/L ALT 40 (9-52) U/L Alkaline Phosphatase 88 (38-126) U/L Total Creatine Kinase 631 H (30-135) U/L CK-MB (Mass) 12.3 H (0.0-3.38) ng/mL Troponin I 0.0140 (0.00-0.120) ng/mL Total Protein 8.0 (6.3-8.3) g/dL Albumin 4.5 (3.5-5.0) g/dL Globulin 3.4 (2.2-3.9) gm/dL Albumin/Globulin Ratio 1.3 (1.0-2.1) TSH 3rd Generation (0.46-4.68) mIU/L Urine Color Colorless (YELLOW) Urine Clarity Clear (Clear) Urine pH 7.0 (5.0-8.0) Ur Specific [place] 1.003 (1.003-1.030) Urine Protein Negative (NEGATIVE) mg/dL Urine Glucose (UA) Normal (Normal) mg/dL Urine Ketones Negative (NEGATIVE) mg/dL Urine Blood 1+ H (NEGATIVE) Urine Nitrate Negative (NEGATIVE) Urine Bilirubin Negative (NEGATIVE) Urine Urobilinogen Normal (0.2-1.0) mg/dL Ur Leukocyte Esterase Neg (Negative) Brianna/uL Urine WBC (Auto) < 1 (0-5) /hpf Urine RBC (Auto) < 1 (0-3) /hpf Urine Osmolality (300-1000) mosm/kg Ur Random Sodium mmol/L Ur Random Potassium mmol/L Urine Opiates Screen Negative (NEGATIVE) Urine Methadone Screen Negative (NEGATIVE) Ur Barbiturates Screen Negative (NEGATIVE) Ur Phencyclidine Scrn Negative (NEGATIVE) Ur Amphetamines Screen Negative (NEGATIVE) U Benzodiazepines Scrn Negative (NEGATIVE) U Oth Cocaine Metabols Negative (NEGATIVE) U Cannabinoids Screen Negative (NEGATIVE) 02/16/17 Range/Units 16:37 WBC 8.8 (4.8-10.8) K/uL RBC 4.84 (3.80-5.20) Mil/uL Hgb 13.2 (11.0-16.0) g/dL Hct 38.4 (34.0-47.0) % MCV 79.2 L (81.0-99.0) fL MCH 27.2 (27.0-31.0) pg MCHC 34.3 (33.0-37.0) g/dL RDW 13.3 (11.5-14.5) % Plt Count 363 (130-400) K/uL MPV 6.5 L (7.2-11.7) fL Neut % (Auto) 72.4 (50.0-75.0) % Lymph % (Auto) 20.0 (20.0-40.0) % [place] % (Auto) 6.1 (0.0-10.0) % Eos % (Auto) 0.6 (0.0-4.0) % Baso % (Auto) 0.9 (0.0-2.0) % Neut # 6.4 (1.8-7.0) K/uL Lymph # 1.8 (1.0-4.3) K/uL [place] # 0.5 (0.0-0.8) K/uL Eos # 0.1 (0.0-0.7) K/uL Baso # 0.1 (0.0-0.2) K/uL Sodium (132-148) mmol/L Potassium (3.6-5.2) mmol/L Chloride (98-107) mmol/L Carbon Dioxide (22-30) mmol/L Anion Gap (10-20) BUN (7-17) mg/dL Creatinine (0.7-1.2) mg/dL Est GFR ( Amer) Est GFR (Non-Af Amer) POC Glucose (mg/dL) (65-110) mg/dL Random Glucose (65-105) mg/dL Serum Osmolality (272-300) mosm/kg Calcium (8.6-10.4) mg/dl Phosphorus (2.5-4.5) mg/dL Magnesium (1.6-2.3) mg/dL Total Bilirubin (0.2-1.3) mg/dL AST (14-36) U/L ALT (9-52) U/L Alkaline Phosphatase (38-126) U/L Total Creatine Kinase (30-135) U/L CK-MB (Mass) (0.0-3.38) ng/mL Troponin I (0.00-0.120) ng/mL Total Protein (6.3-8.3) g/dL Albumin (3.5-5.0) g/dL Globulin (2.2-3.9) gm/dL Albumin/Globulin Ratio (1.0-2.1) TSH 3rd Generation (0.46-4.68) mIU/L Urine Color (YELLOW) Urine Clarity (Clear) Urine pH (5.0-8.0) Ur Specific [place] (1.003-1.030) Urine Protein (NEGATIVE) mg/dL Urine Glucose (UA) (Normal) mg/dL Urine Ketones (NEGATIVE) mg/dL Urine Blood (NEGATIVE) Urine Nitrate (NEGATIVE) Urine Bilirubin (NEGATIVE) Urine Urobilinogen (0.2-1.0) mg/dL Ur Leukocyte Esterase (Negative) Brianna/uL Urine WBC (Auto) (0-5) /hpf Urine RBC (Auto) (0-3) /hpf Urine Osmolality (300-1000) mosm/kg Ur Random Sodium mmol/L Ur Random Potassium mmol/L Urine Opiates Screen (NEGATIVE) Urine Methadone Screen (NEGATIVE) Ur Barbiturates Screen (NEGATIVE) Ur Phencyclidine Scrn (NEGATIVE) Ur Amphetamines Screen (NEGATIVE) U Benzodiazepines Scrn (NEGATIVE) U Oth Cocaine Metabols (NEGATIVE) U Cannabinoids Screen (NEGATIVE) Laboratory Results - last 24 hr 02/16/17 02/16/17 02/16/17 16:37 16:37 16:47 WBC 8.8 RBC 4.84 Hgb 13.2 Hct 38.4 MCV 79.2 L MCH 27.2 MCHC 34.3 RDW 13.3 Plt Count 363 MPV 6.5 L Neut % (Auto) 72.4 Lymph % (Auto) 20.0 [place] % (Auto) 6.1 Eos % (Auto) 0.6 Baso % (Auto) 0.9 Neut # 6.4 Lymph # 1.8 Lassen # 0.5 Eos # 0.1 Baso # 0.1 Sodium 113 L* Potassium 4.4 Chloride 78 L Carbon Dioxide 23 Anion Gap 16 BUN 20 H Creatinine 0.6 L Est GFR ( Amer) > 60 Est GFR (Non-Af Amer) > 60 POC Glucose (mg/dL) Random Glucose 87 Serum Osmolality Calcium 8.8 Phosphorus Magnesium Total Bilirubin 0.9 AST 73 H ALT 40 Alkaline Phosphatase 88 Total Creatine Kinase 631 H CK-MB (Mass) 12.3 H Troponin I 0.0140 Total Protein 8.0 Albumin 4.5 Globulin 3.4 Albumin/Globulin Ratio 1.3 TSH 3rd Generation Urine Color Colorless Urine Clarity Clear Urine pH 7.0 Ur Specific [place] 1.003 Urine Protein Negative Urine Glucose (UA) Normal Urine Ketones Negative Urine Blood 1+ H Urine Nitrate Negative Urine Bilirubin Negative Urine Urobilinogen Normal Ur Leukocyte Esterase Neg Urine WBC (Auto) < 1 Urine RBC (Auto) < 1 Urine Osmolality Ur Random Sodium Ur Random Potassium Urine Opiates Screen Urine Methadone Screen Ur Barbiturates Screen Ur Phencyclidine Scrn Ur Amphetamines Screen U Benzodiazepines Scrn U Oth Cocaine Metabols U Cannabinoids Screen 02/16/17 02/16/17 02/16/17 17:04 17:04 17:07 WBC RBC Hgb Hct MCV MCH MCHC RDW Plt Count MPV Neut % (Auto) Lymph % (Auto) [place] % (Auto) Eos % (Auto) Baso % (Auto) Neut # Lymph # [place] # Eos # Baso # Sodium Potassium Chloride Carbon Dioxide Anion Gap BUN Creatinine Est GFR ( Amer) Est GFR (Non-Af Amer) POC Glucose (mg/dL) 90 Random Glucose Serum Osmolality Calcium Phosphorus Magnesium Total Bilirubin AST ALT Alkaline Phosphatase Total Creatine Kinase CK-MB (Mass) Troponin I Total Protein Albumin Globulin Albumin/Globulin Ratio TSH 3rd Generation 2.42 Urine Color Urine Clarity Urine pH Ur Specific [place] Urine Protein Urine Glucose (UA) Urine Ketones Urine Blood Urine Nitrate Urine Bilirubin Urine Urobilinogen Ur Leukocyte Esterase Urine WBC (Auto) Urine RBC (Auto) Urine Osmolality Ur Random Sodium Ur Random Potassium Urine Opiates Screen Negative Urine Methadone Screen Negative Ur Barbiturates Screen Negative Ur Phencyclidine Scrn Negative Ur Amphetamines Screen Negative U Benzodiazepines Scrn Negative U Oth Cocaine Metabols Negative U Cannabinoids Screen Negative 02/16/17 02/16/17 02/16/17 17:43 17:56 23:23 WBC RBC Hgb Hct MCV MCH MCHC RDW Plt Count MPV Neut % (Auto) Lymph % (Auto) [place] % (Auto) Eos % (Auto) Baso % (Auto) Neut # Lymph # [place] # Eos # Baso # Sodium 122 L Potassium 3.3 L Chloride 89 L Carbon Dioxide 26 Anion Gap 10 BUN 15 Creatinine 0.6 L Est GFR ( Amer) > 60 Est GFR (Non-Af Amer) > 60 POC Glucose (mg/dL) Random Glucose 89 Serum Osmolality 253.0 L Calcium 8.6 Phosphorus Magnesium Total Bilirubin AST ALT Alkaline Phosphatase Total Creatine Kinase CK-MB (Mass) Troponin I Total Protein Albumin Globulin Albumin/Globulin Ratio TSH 3rd Generation Urine Color Urine Clarity Urine pH Ur Specific [place] Urine Protein Urine Glucose (UA) Urine Ketones Urine Blood Urine Nitrate Urine Bilirubin Urine Urobilinogen Ur Leukocyte Esterase Urine WBC (Auto) Urine RBC (Auto) Urine Osmolality 144.0 L Ur Random Sodium 19 Ur Random Potassium 16.6 Urine Opiates Screen Urine Methadone Screen Ur Barbiturates Screen Ur Phencyclidine Scrn Ur Amphetamines Screen U Benzodiazepines Scrn U Oth Cocaine Metabols U Cannabinoids Screen 02/17/17 02/17/17 02/17/17 06:28 06:28 08:04 WBC 6.3 RBC 4.68 Hgb 13.1 Hct 37.9 MCV 81.0 MCH 28.0 MCHC 34.6 RDW 13.0 Plt Count 371 MPV 6.4 L Neut % (Auto) 60.9 Lymph % (Auto) 26.2 [place] % (Auto) 9.9 Eos % (Auto) 2.1 Baso % (Auto) 0.9 Neut # 3.8 Lymph # 1.7 [place]assen # 0.6 Eos # 0.1 Baso # 0.1 Sodium 125 L Potassium 3.4 L Chloride 88 L Carbon Dioxide 24 Anion Gap 16 BUN 12 Creatinine 0.5 L Est GFR ( Amer) > 60 Est GFR (Non-Af Amer) > 60 POC Glucose (mg/dL) Random Glucose 89 Serum Osmolality Calcium 8.9 Phosphorus 3.6 Magnesium 2.0 Total Bilirubin 0.8 AST 43 H D ALT 51 Alkaline Phosphatase 85 Total Creatine Kinase CK-MB (Mass) Troponin I Total Protein 7.1 Albumin 3.8 Globulin 3.3 Albumin/Globulin Ratio 1.1 TSH 3rd Generation Urine Color Urine Clarity Urine pH Ur Specific [place] Urine Protein Urine Glucose (UA) Urine Ketones Urine Blood Urine Nitrate Urine Bilirubin Urine Urobilinogen Ur Leukocyte Esterase Urine WBC (Auto) Urine RBC (Auto) Urine Osmolality 143 L Ur Random Sodium 19 Ur Random Potassium Urine Opiates Screen Urine Methadone Screen Ur Barbiturates Screen Ur Phencyclidine Scrn Ur Amphetamines Screen U Benzodiazepines Scrn U Oth Cocaine Metabols U Cannabinoids Screen 02/17/17 10:27 WBC RBC Hgb Hct MCV MCH MCHC RDW Plt Count MPV Neut % (Auto) Lymph % (Auto) [place] % (Auto) Eos % (Auto) Baso % (Auto) Neut # Lymph # [place] # Eos # Baso # Sodium 126 L Potassium 3.5 L Chloride 88 L Carbon Dioxide Anion Gap BUN Creatinine Est GFR ( Amer) Est GFR (Non-Af Amer) POC Glucose (mg/dL) Random Glucose Serum Osmolality Calcium Phosphorus Magnesium Total Bilirubin AST ALT Alkaline Phosphatase Total Creatine Kinase CK-MB (Mass) Troponin I Total Protein Albumin 4.3 Globulin Albumin/Globulin Ratio TSH 3rd Generation Urine Color Urine Clarity Urine pH Ur Specific [place] Urine Protein Urine Glucose (UA) Urine Ketones Urine Blood Urine Nitrate Urine Bilirubin Urine Urobilinogen Ur Leukocyte Esterase Urine WBC (Auto) Urine RBC (Auto) Urine Osmolality Ur Random Sodium Ur Random Potassium Urine Opiates Screen Urine Methadone Screen Ur Barbiturates Screen Ur Phencyclidine Scrn Ur Amphetamines Screen U Benzodiazepines Scrn U Oth Cocaine Metabols U Cannabinoids Screen EKG/Cardiology Studies: Cardiology / EKG Studies 02/16/17 16:23 ELECTROCARDIOGRAM Stat Comment: BED12 Mode Of Transportation: BED Reason For Exam: PALPITATIONS 02/16/17 16:26 ELECTROCARDIOGRAM Stat Comment: BED12 Mode Of Transportation: BED Reason For Exam: PALPITATIONS Fingerstick Blood Sugar Results: 90 Review of Systems - Constitutional Constitutional: absent: Fever, Chills, Sweats, Weakness - EENT Eyes: absent: Blurred Vision, Change in Vision Ears: absent: Dizziness - Cardiovascular Cardiovascular: absent: Chest Pain, Diaphoresis, Dyspnea, Dyspnea on Exertion, Lightheadedness, Palpitations, Syncope - Respiratory Respiratory: absent: Dyspnea, Dyspnea on Exertion, Pain on Inspiration - Gastrointestinal Gastrointestinal: absent: Abdominal Pain, Cramping, Nausea, Vomiting - Musculoskeletal Musculoskeletal: absent: Numbness, Tingling - Neurological Neurological: Weakness. absent: Dizziness, Numbness, Headaches, Tingling - Endocrine Endocrine: Fatigue. absent: Palpitations Critical Care Progress Note - Ventilator Checklist Head of Bed 30 Degrees: No Daily Sedation Vacation: No Daily Assessment of Readiness to Wean: No Daily Spontaneous Breathing Trial: No PUD Prophalyxis: Yes DVT Prophylaxis: Yes - Nutrition Nutrition: Nutrition Category Date Time Status Regular Diet [DIET] Diets 02/16/17 Breakfast Active Assessment/Plan - Assessment and Plan (Free Text) Assessment: Patient is a 66 year old female with past medical history of HLD and HTN, who presents with generalized weakness, who was found to be hyponatremia. Patient drinks a lot of water every day due to severe dehydration. Patient was admitted for close ICU observation due to hyponatremia. Today: Plan: 10-12Meq correction of Na+ in 24 hours Plan: Neuro: Alert, awake and oriented Cardio: Hx of HTN Medication/Management: * Norvasc 5mg PO daily Pulm: No acute issues GI: No acute issues Endo: No acute issues Renal: Hyponatremia Medication/Management: * Hypertonic NS @ 20mls ( Stopped 02/17/17 due to more that 10meq increase prior 24 hours) * Goal: 10-12meq increase in 24 hours * Continue to monitor with repeat BMP and AM CMP ID: No acute issues Prophylaxis: DVT: SCDs, lovenox 40mg SC daily GI: Pepcid 20mg IVP daily
--- NOTE | 2017-02-17 12:29 | US ---
Abdominal ultrasound History: Abdominal pain. Comparison: None available. Technique: Real-time sonography was performed through the abdomen. Findings: Liver: 15 centimeters in length. Increased echogenicity of the hepatic parenchymal cortex suggestive for fatty infiltration versus hepatic parenchymal disease. Clinical correlation. Scattered echogenic foci in the liver of uncertain clinical etiology. This may represent granulomatous disease. Correlation with multiphasic CT may be helpful for further evaluation if clinically indicated. Gallbladder appears preserved. No calculi or sludge. Normal wall thickness of 1.2 millimeters. Common bile duct measures 5.3 millimeters, within normal limits. Visualized portions of the pancreas are preserved. Pancreatic tail not well visualized. Spleen measures 7.2 centimeters in length, within normal limits. Visualized aorta and IVC are preserved. Right kidney: 12.3 x 4.1 x 4.7 centimeters. Midpole hypoechoic cyst measuring 8 x 9 x 10 millimeters. No calculi or hydronephrosis. Left Kidney: 11.2 x 5.1 x 5.0 centimeters. No calculi or hydronephrosis. Impression: Increased echogenicity of the hepatic parenchymal cortex suggestive for fatty infiltration versus hepatic parenchymal disease. Clinical correlation. Scattered echogenic foci seen throughout the liver which may represent granulomatous changes however additional etiologies are not excluded. Correlation with multiphasic CT may be helpful if clinically indicated. Right renal cyst. Limited visualization of the pancreas.
--- NOTE | 2017-02-17 15:41 | CP.PCM.PN ---
Subjective - Date & Time of Evaluation Date of Evaluation: 02/17/17 Time of Evaluation: 15:39 Objective - Vital Signs/Intake and Output Vital Signs (last 24 hours): Temp Pulse Resp BP Pulse Ox 97.7 F 68 16 117/65 96 02/17/17 12:00 02/17/17 14:21 02/17/17 14:21 02/17/17 14:21 02/17/17 14:21 Intake and Output: 02/17/17 02/17/17 06:59 18:59 Intake Total 500 960 Output Total 500 1100 Balance 0 -140 - Medications Medications: Current Medications Amlodipine Besylate (Norvasc) 5 mg PO DAILY [facility] Last Admin: 02/17/17 11:30 Dose: 5 mg Enoxaparin Sodium (Lovenox) 40 mg SC DAILY [facility] Last Admin: 02/17/17 10:07 Dose: 40 mg Famotidine (Pepcid) 20 mg IVP DAILY [facility] Last Admin: 02/17/17 10:08 Dose: 20 mg Pneumococcal Polyvalent Vaccine (Pneumovax 23 Vaccine) 0.5 ml IM .ONCE ONE Stop: 02/19/17 19:10 - Labs Labs: 02/17/17 06:28 02/17/17 10:27 Assessment and Plan - Assessment and Plan (Free Text) Assessment: 1. 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 continue icu monitoring
[2017-02-17 18:20] LABS: CHLORIDE 91 mmol/L (98-107); SODIUM 127 mmol/L (132-148)
[2017-02-17 18:23] LABS: BLOOD UREA NITROGEN 22 mg/dL (7-17); CARBON DIOXIDE 26 mmol/L (22-30); GFR AFRICAN-AMERICAN > 60; GLUCOSE,RANDOM 151 mg/dL (65-105)
[2017-02-17 18:24] LABS: CALCIUM 8.6 mg/dl (8.6-10.4)
--- NOTE | 2017-02-18 06:24 | CON ---
DATE: HISTORY OF PRESENT ILLNESS: A 66-year-old female with a past medical history of hypertension, hyperlipidemia, presented to the ED yesterday with a complaint of feeling fatigued progressively since the past two months. The patient was found to be severely hyponatremic and subsequently admitted. Nephrology team consulted for hyponatremia management. The patient reports that she had been feeling well up until about 10 weeks' ago. The patient reports that she had actually started gaining weight and felt the need to go on a diet about 10 weeks' ago. She reports her diet consisted of tea and bread for breakfast and lunch and would have a very small piece of meat along with salad for dinner; the patient also reports going to her doctor around this period and being told that she seems very dehydrated and was instructed to drink more water; the patient subsequently began drinking about 20 glasses of water daily; the patient continues to take her blood pressure medication, chlorthalidone; otherwise, the patient denies any use of pain medications; she denies any nausea, vomiting, diarrhea, or upper respiratory symptoms. PAST MEDICAL HISTORY: As above. SOCIAL HISTORY: Denies ever smoking. FAMILY HISTORY: Two sisters with breast cancer. Mother, status post CVA. REVIEW OF SYSTEMS: CONSTITUTIONAL: As above. No fevers or chills. HEENT: No change in vision. RESPIRATORY: Denies any cough, reportedly was having dyspnea. CARDIOVASCULAR: Denies any chest pain, reportedly had some palpitations. GASTROINTESTINAL: The patient reporting vague abdominal pain, otherwise as per HPI. GENITOURINARY: No dysuria or gross hematuria. MUSCULOSKELETAL: Reports feeling stressed on her back. NEUROLOGIC: Denies dizziness or headaches. PSYCHIATRIC: Reports anxiety. PHYSICAL EXAMINATION: GENERAL: No distress, conversing coherently in full sentences. VITAL SIGNS: Vitals this evening, blood pressure 138/85, heart rate 86, respirations 16, temperature 97.7, O2 saturation 98% on room air. HEENT: Moist mucous membranes. Nonicteric. No cervical lymphadenopathy. RESPIRATORY: Lungs are clear to auscultation bilaterally. No rales. No rhonchi. No wheezes. CARDIOVASCULAR: Heart sounds S1 and S2 normal. No murmurs. No gallops. No rubs. GASTROINTESTINAL: Abdomen is soft, mild tenderness to deep palpation bilaterally, unable to localize any specific point of tenderness, otherwise nondistended. GENITOURINARY: No bladder distention. EXTREMITIES: No leg edema. SKIN: Warm. No cyanosis. PSYCHIATRIC: Normal mood. Normal affect. NEUROLOGIC: Gait is stable. LABORATORY DATA: Labs this morning, CBC; WBC 6.3, hemoglobin 13.1, hematocrit 37.9, platelets 371. Chemistry panel this morning; sodium 125, potassium 3.4, chloride 88, bicarbonate 24, BUN 12, creatinine 0.5, glucose 89, calcium 8.9, albumin 3.8. TSH 2.4. Urine lytes, urine osmolality 143, urine sodium 19. ASSESSMENT AND PLAN: 1. Hyponatremia. The patient's history consistent with inadequate solute intake; may have had also an element of volume depletion; unclear if urine lytes that were sent was at start of therapy with normal saline bolus or was snf through the bolus; use of chlorthalidone was also likely contributory as was drinking excess amount of free water. Serum sodium corrected rapidly yesterday after being placed on hypertonic saline; serum sodium overall has corrected to 14 mEq over the past 26 hours with most of the correction coming over a 7-hour period yesterday; at this point, utility of giving back free water to lower serum sodium is unclear as adaptation to the higher serum sodium has already started to take place; nevertheless, we will give D5W at 250 mL an hour for 1 liter to bring serum sodium to low 120s, which is closer to our goal of 8 mEq in a 24-hour period. The patient's urine osmolality is relatively low and therefore, she will correct her serum sodium spontaneously with adequate diet. 2. Hypertension. Obviously chlorthalidone is not an optimal choice for this patient given her current presentation. Currently, the patient is normotensive, no need for blood pressure medications, but we would suggest starting amlodipine 5 mg daily once she is more stable. Jcarlos Navarrete MD MTDFausto
[2017-02-18 06:38] LABS: BASO # 0.1 K/uL (0.0-0.2); BASO % 1.8 % (0.0-2.0); EOS # 0.2 K/uL (0.0-0.7); EOS % 2.8 % (0.0-4.0); HEMATOCRIT 39.1 % (34.0-47.0); LYMPH # 1.7 K/uL (1.0-4.3); LYMPH % 25.9 % (20.0-40.0); MEAN CELL VOLUME 81.3 fL (81.0-99.0); MEAN CORPUSCULAR HEMOGLOBIN 27.9 pg (27.0-31.0); MEAN CORPUSCULAR HGB CONC 34.3 g/dL (33.0-37.0); MEAN PLATELET VOLUME 6.3 fL (7.2-11.7); MONO # 0.7 K/uL (0.0-0.8); MONO % 10.3 % (0.0-10.0); NRBC % 0.1 % (0.0-2.0); RED CELL DISTRIBUTION WIDTH 13.1 % (11.5-14.5); WHITE BLOOD COUNT 6.5 K/uL (4.8-10.8)
[2017-02-18 06:50] LABS: CHLORIDE 93 mmol/L (98-107); SODIUM 131 mmol/L (132-148)
[2017-02-18 06:51] LABS: POTASSIUM 3.6 mmol/L (3.6-5.2)
[2017-02-18 06:52] LABS: GFR AFRICAN-AMERICAN > 60
[2017-02-18 06:53] LABS: ALB/GLOB RATIO 1.1 (1.0-2.1); ALKALINE PHOSPHATASE 81 U/L (38-126); ALT/SGPT 47 U/L (9-52); AST/SGOT 38 U/L (14-36); BILIRUBIN,TOTAL 0.6 mg/dL (0.2-1.3); BLOOD UREA NITROGEN 15 mg/dL (7-17); CARBON DIOXIDE 27 mmol/L (22-30); GLUCOSE,RANDOM 88 mg/dL (65-105); PHOSPHOROUS 3.2 mg/dL (2.5-4.5); TOTAL PROTEIN 7.3 g/dL (6.3-8.3)
[2017-02-18 06:54] LABS: CALCIUM 9.3 mg/dl (8.6-10.4)
--- NOTE | 2017-02-18 08:34 | CP.PCM.PN ---
Subjective - Date & Time of Evaluation Date of Evaluation: 02/18/17 Time of Evaluation: 08:10 - Subjective Subjective: Hospitalist Progress Note Patient was seen and examined at 8:10 AM. 66 year old female was admitted on 02/16/17 for fatigue x 2 months with SOB, palpitations. She was found to be Hyponatremic. She was started on Hypertonic Saline which was discontinued on 02/17/17. The hyponatremia was likely secondary to Chlorthalidone and polydipsia. Currently upon FULL ROS: NO chest pain NO palpitations NO SOB/Cough NO dysphagia/odynophagia NO abdominal pain NO n/v/d/c (last bowel movement was yesterday and it was normal) NO new changes in vision NO new changes in hearing NO edema NO paresthesias Headache bifrontal last night Exam: HEENT: NCA, EOMI, PERRLA, NO cervical lymphadenopathy, NO thyromegaly, NO pharyngeal erythema/exudate, Nasal turbinates are moist/nonerythematous/ nonedematous Cardio: NS1 and NS2, NO M/R/G Respiratory: CTA B/L, NO R/R/W GI: BSx4, Soft, NT, ND, NO HSM, NO guarding/rebound tenderness Ext: Pulses are strong and equal, Capillary Refill is 2 seconds, NO edema Neuro: CN II through XII are grossly intact. Assessment and Plan: 1). Hyponatremia Likely secondary to the polydypsia and chlorthalidone medication at home Given hypertonic saline upon admission and this was stopped on 02/17/17 Na is 131 currently 2). HTN Norvasc 5 mg PO 1x/day Explained to patient that she must discontinue her Chlorthalidone Upon discharge place patient on Norvasc 5 mg PO 2x/day (9 AM and 9 PM) 3). Prophylaxis Lovenox 40 mg SC 1x/day Pepcid 20 mg IV 1x/day Disposition: patient is stable for discharge. However patient does not want to leave. I explained to her that her immediate acute issue of Hyponatremia had improved and therefore she would be discharged. Upon further conversation with patient, she revealed that she is all alone at home and that all of her family ( children) are in [place]. She has no plans to hurt her self or anyone else. I have spoken with Wing Scorer and Nurse to make sure International Logistics Analyst speaks with patient today to provide her with information concerning Adult Daycare or Meal services. I have also ordered Psychiatry evaluation for possible depression. She already has follow scheduled with her PMD Dr. Damaso Ramírez on 02/28/17. I spoke with ASHLEY Puri and patient was offered additional services but has declined them. ICU Resident Dr. Doss has spoken with Psychiatrist Dr. Rubi and she is cleared from his standpoint. The following instructions were explained to patient: 1). Follow up with your Primary Care Physician Dr. Damaso Ramírez as scheduled for 02/28/17. 2). DO NOT TAKE your home medication of Chlorthalidone. 3). The following prescriptions will need to be filled at the pharmacy of your choice: Atorvastatin 20 mg, 1 tablet by mouth 1x/day (dinner), Dispense #30, NO refills Norvasc 5 mg, 1 tablet by mouth 2x/day (breakfast and dinner), Dispense #60, NO refills 4). Obtain a blood pressure measuring device and measure your blood pressure and heart rate in the following manner. Bring these measurements to your appointment with Dr. Damaso Ramírez: Before breakfast on Day 1 Before lunch on Day 2 Before dinner on Day 3 Before going to bed at night on Day 4 Repeat the above cycle until you see Dr. Damaso Ramírez 5). Please take care and be well. Micheal Perez D.O. Jorge A KimO. [phone] Objective - Vital Signs/Intake and Output Vital Signs (last 24 hours): Temp Pulse Resp BP Pulse Ox 98.2 F 75 17 144/74 97 02/18/17 04:00 02/18/17 07:00 02/18/17 07:00 02/18/17 06:32 02/18/17 07:00 Intake and Output: 02/18/17 02/18/17 06:59 18:59 Intake Total 1100 Output Total 1900 Balance -800 - Medications Medications: Current Medications Amlodipine Besylate (Norvasc) 5 mg PO DAILY [facility] Last Admin: 02/17/17 11:30 Dose: 5 mg Enoxaparin Sodium (Lovenox) 40 mg SC DAILY [facility] Last Admin: 02/17/17 10:07 Dose: 40 mg Famotidine (Pepcid) 20 mg IVP DAILY [facility] Last Admin: 02/17/17 10:08 Dose: 20 mg Pneumococcal Polyvalent Vaccine (Pneumovax 23 Vaccine) 0.5 ml IM .ONCE ONE Stop: 02/19/17 19:10 - Labs Labs: 02/18/17 06:28 02/18/17 06:28
[2017-02-18] MEDS: Enoxaparin 40 mg Syringe SC SCH (10:20)
[2017-02-18 10:40] LABS: CHLORIDE URINE 30 mmol/L (32-290)
[2017-02-18 12:34] VITALS: TEMP 97.5
--- NOTE | 2017-02-18 13:48 | CP.PCM.DIS ---
Provider - Provider Date of Admission: 02/16/17 17:26 Attending physician: Stefanie Guerrero MD Primary care physician: Dr. Damaso Ramírez Consults: Sustainability Specialist Psychiatry Dr. Rubi Bingo Attendant Dr. Janine Navarrete Time Spent in preparation of Discharge (in minutes): 40 Hospital Course - Lab Results Lab Results: Most Recent Lab Values WBC 6.5 K/uL (4.8-10.8) 02/18/17 06:28 RBC 4.81 Mil/uL (3.80-5.20) 02/18/17 06:28 Hgb 13.4 g/dL (11.0-16.0) 02/18/17 06:28 Hct 39.1 % (34.0-47.0) 02/18/17 06:28 MCV 81.3 fL (81.0-99.0) 02/18/17 06:28 MCH 27.9 pg (27.0-31.0) 02/18/17 06:28 MCHC 34.3 g/dL (33.0-37.0) 02/18/17 06:28 RDW 13.1 % (11.5-14.5) 02/18/17 06:28 Plt Count 361 K/uL (130-400) 02/18/17 06:28 MPV 6.3 fL (7.2-11.7) L 02/18/17 06:28 Neut % (Auto) 59.2 % (50.0-75.0) 02/18/17 06:28 Lymph % (Auto) 25.9 % (20.0-40.0) 02/18/17 06:28 Borden % (Auto) 10.3 % (0.0-10.0) H 02/18/17 06:28 Eos % (Auto) 2.8 % (0.0-4.0) 02/18/17 06:28 Baso % (Auto) 1.8 % (0.0-2.0) 02/18/17 06:28 Neut # 3.9 K/uL (1.8-7.0) 02/18/17 06:28 Lymph # 1.7 K/uL (1.0-4.3) 02/18/17 06:28 Borden # 0.7 K/uL (0.0-0.8) 02/18/17 06:28 Eos # 0.2 K/uL (0.0-0.7) 02/18/17 06:28 Baso # 0.1 K/uL (0.0-0.2) 02/18/17 06:28 Sodium 131 mmol/L (132-148) L 02/18/17 06:28 Potassium 3.6 mmol/L (3.6-5.2) 02/18/17 06:28 Chloride 93 mmol/L (98-107) L 02/18/17 06:28 Carbon Dioxide 27 mmol/L (22-30) 02/18/17 06:28 Anion Gap 15 (10-20) 02/18/17 06:28 BUN 15 mg/dL (7-17) 02/18/17 06:28 Creatinine 0.6 mg/dL (0.7-1.2) L 02/18/17 06:28 Est GFR ( Amer) > 60 02/18/17 06:28 Est GFR (Non-Af Amer) > 60 02/18/17 06:28 POC Glucose (mg/dL) 90 mg/dL (65-110) 02/16/17 17:07 Random Glucose 88 mg/dL (65-105) 02/18/17 06:28 Serum Osmolality 253.0 mosm/kg (272-300) L 02/16/17 17:43 Calcium 9.3 mg/dl (8.6-10.4) 02/18/17 06:28 Phosphorus 3.2 mg/dL (2.5-4.5) 02/18/17 06:28 Magnesium 2.0 mg/dL (1.6-2.3) 02/18/17 06:28 Total Bilirubin 0.6 mg/dL (0.2-1.3) 02/18/17 06:28 AST 38 U/L (14-36) H D 02/18/17 06:28 ALT 47 U/L (9-52) 02/18/17 06:28 Alkaline Phosphatase 81 U/L (38-126) 02/18/17 06:28 Total Creatine Kinase 631 U/L (30-135) H 02/16/17 16:37 CK-MB (Mass) 12.3 ng/mL (0.0-3.38) H 02/16/17 16:37 Troponin I 0.0140 ng/mL (0.00-0.120) 02/16/17 16:37 Total Protein 7.3 g/dL (6.3-8.3) 02/18/17 06:28 Albumin 3.9 g/dL (3.5-5.0) 02/18/17 06:28 Globulin 3.4 gm/dL (2.2-3.9) 02/18/17 06:28 Albumin/Globulin Ratio 1.1 (1.0-2.1) 02/18/17 06:28 TSH 3rd Generation 2.42 mIU/L (0.46-4.68) 02/16/17 17:04 Urine Color Colorless (YELLOW) 02/16/17 16:47 Urine Clarity Clear (Clear) 02/16/17 16:47 Urine pH 7.0 (5.0-8.0) 02/16/17 16:47 Ur Specific Mineral 1.003 (1.003-1.030) 02/16/17 16:47 Urine Protein Negative mg/dL (NEGATIVE) 02/16/17 16:47 Urine Glucose (UA) Normal mg/dL (Normal) 02/16/17 16:47 Urine Ketones Negative mg/dL (NEGATIVE) 02/16/17 16:47 Urine Blood 1+ (NEGATIVE) H 02/16/17 16:47 Urine Nitrate Negative (NEGATIVE) 02/16/17 16:47 Urine Bilirubin Negative (NEGATIVE) 02/16/17 16:47 Urine Urobilinogen Normal mg/dL (0.2-1.0) 02/16/17 16:47 Ur Leukocyte Esterase Neg Brianna/uL (Negative) 02/16/17 16:47 Urine WBC (Auto) < 1 /hpf (0-5) 02/16/17 16:47 Urine RBC (Auto) < 1 /hpf (0-3) 02/16/17 16:47 Urine Osmolality 624 mosm/kg (300-1000) 02/17/17 19:24 Ur Random Sodium 14 mmol/L 02/17/17 19:24 Ur Random Potassium 16.6 mmol/L 02/16/17 17:56 Urine Chloride 30 mmol/L (32-290) L 02/16/17 17:56 Urine Opiates Screen Negative (NEGATIVE) 02/16/17 17:04 Urine Methadone Screen Negative (NEGATIVE) 02/16/17 17:04 Ur Barbiturates Screen Negative (NEGATIVE) 02/16/17 17:04 Ur Phencyclidine Scrn Negative (NEGATIVE) 02/16/17 17:04 Ur Amphetamines Screen Negative (NEGATIVE) 02/16/17 17:04 U Benzodiazepines Scrn Negative (NEGATIVE) 02/16/17 17:04 U Oth Cocaine Metabols Negative (NEGATIVE) 02/16/17 17:04 U Cannabinoids Screen Negative (NEGATIVE) 02/16/17 17:04 - Hospital Course Hospital Course: Hospitalist Progress Note Patient was seen and examined at 8:10 AM. 66 year old female was admitted on 02/16/17 for fatigue x 2 months with SOB, palpitations. She was found to be Hyponatremic. She was started on Hypertonic Saline which was discontinued on 02/17/17. The hyponatremia was likely secondary to Chlorthalidone and polydipsia. Please see Assessment and Plans below for further details. Currently upon FULL ROS: NO chest pain NO palpitations NO SOB/Cough NO dysphagia/odynophagia NO abdominal pain NO n/v/d/c (last bowel movement was yesterday and it was normal) NO new changes in vision NO new changes in hearing NO edema NO paresthesias Headache bifrontal last night Exam: HEENT: NCA, EOMI, PERRLA, NO cervical lymphadenopathy, NO thyromegaly, NO pharyngeal erythema/exudate, Nasal turbinates are moist/nonerythematous/ nonedematous Cardio: NS1 and NS2, NO M/R/G Respiratory: CTA B/L, NO R/R/W GI: BSx4, Soft, NT, ND, NO HSM, NO guarding/rebound tenderness Ext: Pulses are strong and equal, Capillary Refill is 2 seconds, NO edema Neuro: CN II through XII are grossly intact. Assessment and Plan: 1). Hyponatremia Likely secondary to the polydypsia and chlorthalidone medication at home Given hypertonic saline upon admission and this was stopped on 02/17/17 Na is 131 currently 2). HTN Norvasc 5 mg PO 1x/day Explained to patient that she must discontinue her Chlorthalidone Upon discharge place patient on Norvasc 5 mg PO 2x/day (9 AM and 9 PM) 3). Prophylaxis Lovenox 40 mg SC 1x/day Pepcid 20 mg IV 1x/day Disposition: patient is stable for discharge. However patient does not want to leave. I explained to her that her immediate acute issue of Hyponatremia had improved and therefore she would be discharged. Upon further conversation with patient, she revealed that she is all alone at home and that all of her family ( children) are in [place]. She has no plans to hurt her self or anyone else. I have spoken with Temporary Receptionist and Nurse to make sure Sustainability Specialist speaks with patient today to provide her with information concerning Adult Daycare or Meal services. I have also ordered Psychiatry evaluation for possible depression. She already has follow scheduled with her PMD Dr. Damaso Ramírez on 02/28/17. I spoke with ASHLEY Puri and patient was offered additional services but has declined them. ICU Resident Dr. Doss has spoken with Psychiatrist Dr. Rubi and she is cleared from his standpoint. The following instructions were explained to patient: 1). Follow up with your Primary Care Physician Dr. Damaso Ramírez as scheduled for 02/28/17. 2). DO NOT TAKE your home medication of Chlorthalidone. 3). The following prescriptions will need to be filled at the pharmacy of your choice: Atorvastatin 20 mg, 1 tablet by mouth 1x/day (dinner), Dispense #30, NO refills Norvasc 5 mg, 1 tablet by mouth 2x/day (breakfast and dinner), Dispense #60, NO refills 4). Obtain a blood pressure measuring device and measure your blood pressure and heart rate in the following manner. Bring these measurements to your appointment with Dr. Damaso Ramírez: Before breakfast on Day 1 Before lunch on Day 2 Before dinner on Day 3 Before going to bed at night on Day 4 Repeat the above cycle until you see Dr. Damaso Ramírez 5). Please take care and be well. Micheal Perez D.O. Discharge Exam - Head Exam Head Exam: ATRAUMATIC, NORMOCEPHALIC Discharge Plan - Follow Up Plan Condition: GOOD Disposition: HOME/ ROUTINE Instructions: Amlodipine (By mouth), Atorvastatin (By mouth), Hyponatremia (DC) , Chronic Hypertension (DC) Additional Instructions: The following instructions were explained to patient: 1). Follow up with your Primary Care Physician Dr. Damaso Ramírez as scheduled for 02/28/17. 2). DO NOT TAKE your home medication of Chlorthalidone. 3). The following prescriptions will need to be filled at the pharmacy of your choice: Atorvastatin 20 mg, 1 tablet by mouth 1x/day (dinner), Dispense #30, NO refills Norvasc 5 mg, 1 tablet by mouth 2x/day (breakfast and dinner), Dispense #60, NO refills 4). Obtain a blood pressure measuring device and measure your blood pressure and heart rate in the following manner. Bring these measurements to your appointment with Dr. Damaso Ramírez: Before breakfast on Day 1 Before lunch on Day 2 Before dinner on Day 3 Before going to bed at night on Day 4 Repeat the above cycle until you see Dr. Damaso Ramírez 5). Please take care and be well.
[2017-02-18 14:08] VITALS: BP 157/83; PULSE 87; RESP 20; O2SAT 99
--- NOTE | 2017-02-18 14:36 | PCM.PSYCH ---
Initial Psychiatric Evaluation - Initial Psychiatric Evaluation Type of Admission: Voluntary Legal Status: Capacity Chief Complaint (in patient's own words): "I have no more stress" Psych consult called for pt's altered mental status and bizarre affect History of Present Illness and Precipitating Events: Pt presented to the ED 02/16/17 with the complaints of generalized weakness and "a lot of stress in her body." She was admitted for hyponatremia and altered mental status. She has a PMH of HTN and hyperlipidemia. When explaining what brought her to the hospital, she reports that her PMD told her she was "severely dehydrated" ~3 months ago and advised her to increase her intake of water. She believes that her subsequent "excessive water" intake is what precipitated the "phenomena" that brought her to the hospital. These included various somatic complaints which she reports to have all resolved since her admission and treatment. She denies prior psychiatric history as well as family history of psychiatric illness. She denies the use of alcohol, drugs and tobacco. The pt is a poor historian. She speaks excessively and tells many stories of a grandiose nature relating to her history of prestigious education and employment. However, she currently resides in a longterm and is unemployed. Her and children live in [place] and she reports that she left them to come to [place] but cannot explain why. She currently reports to feel well and has no complaints. She denies feelings of anxiety, depression, paranoia, hallucinations and SI. Pt is cleared by psych. Call with questions or concerns. Current Medications: Active Medications Generic Name Dose Route Start Last Admin Trade Name Nalini PRN Reason Stop Dose Admin Amlodipine Besylate 5 mg 02/17/17 10:00 02/18/17 10:20 Norvasc PO 5 mg DAILY [facility] Administration Enoxaparin Sodium 40 mg 02/17/17 10:00 02/18/17 10:20 Lovenox SC 40 mg DAILY [facility] Administration Famotidine 20 mg 02/17/17 10:00 02/18/17 10:20 Pepcid IVP 20 mg DAILY [facility] Administration Pneumococcal Polyvalent Vaccine 0.5 ml 02/19/17 19:09 Pneumovax 23 Vaccine IM 02/19/17 19:10 .ONCE ONE Past Psychiatric History - Past Psychiatric History Previous Treatment History: None Pertinent Medical Hx (Current Medical&Sleep Prob, Allergies): Allergies Allergy/AdvReac Type Severity Reaction Status Date / Time No Known Allergies Allergy Unverified 02/16/17 16:18 Atorvastatin [Lipitor] 1 tab PO HS 02/16/17 amLODIPine [Norvasc] 5 mg PO DAILY tab 02/18/17 Review of Systems - Review of Systems All systems: reviewed and no additional remarkable complaints except - Neurological Neurological: UNREMARKABLE - Psychiatric Psychiatric: absent: Anxiety, Depression, Hallucinations, Suicidal Ideation Mental Status Examination - Personal Presentation Personal Presentation: Looks stated age - Affect Affect: Constricted - Motor Activity Motor Activity: Calm - Reliability in Providing Information Reliability in Providing Information: Poor, due to alteration in thoughts - Speech Speech: Organized - Mood Mood: Anxious - Formal Thought Process Formal Thought Process: Circumstantial - Obsessions/Compulsions Obsessions: No Compulsions: No - Cognitive Functions Orientation: Person, Place, Situation, Time Sensorium: Alert Attention/Concentration: Attentive Abstract Thinking: [place] Estimate of Intelligence: Average Judgement: Intact, as evidence by: Insight regarding need for hospitalization Memory: Remote intact, as evidenced by: Abilit to recall sig. life events - Risk Risk: Diminished functioning - Limitations Limitations: Living alone DSM 5 DX - DSM 5 DSM 5 Diagnosis: Mood disorder NOS - Recommended/Plan of Treatment Treatment Recommendations and Plan of Treatment: Mood disorder NOS Patient psychiatrically stable and cleared to discharge with a plan to follow- up with outpatient psychiatrist - Smoking Cessation Smoking Cessation Initiated: No
--- NOTE | 2017-02-18 19:28 | CARD ---
APPROVED REPORT EKG Measurement Heart [id number] <Conclusion> Sinus rhythm with premature atrial complexes and premature ventricular complexes or fusion complexes Right bundle branch block Abnormal ECG
[2017-02-19] MEDS ORDERED: Pneumococcal 23-Valent Vaccine IM ONE (19:09)
[2017-02-19] MEDS ORDERED: Influenza Vaccine 60 mcg/0.5 mL SYR (4YR UP) IM ONE (19:48)
== END 2017-02-18 14:40 | disposition home or self-care (01) | DRG 297 ==
LOC: C.ER 16:11 → C.9I 17:26
PROVIDERS: ADMIT Internal Medicine; ATTEND Internal Medicine
DX: E87.1 Hypo-osmolality and hyponatremia (principal); I10 Essential (primary) hypertension; E78.5 Hyperlipidemia, unspecified; E86.0 Dehydration; F39 Unspecified mood [affective] disorder; R63.1 Polydipsia; T50.2X5A Adverse effect of carbonic-anhydrase inhibitors, benzothiadiazides and other diuretics, initial encounter; Z79.899 Other long term (current) drug therapy; Z80.3 Family history of malignant neoplasm of breast

== ENCOUNTER 2017-06-01 13:54 | Observation (INO) | payer MEDICAID ==
--- NOTE | 2017-06-01 14:51 | C.PDOC ---
Time Seen by Provider: 06/01/17 14:11 Chief Complaint (Nursing): Chest Pain Past Medical History Vital Signs: Last Vital Signs Temp 98.3 F 06/01/17 13:57 Pulse 71 06/01/17 13:57 Resp 18 06/01/17 13:57 BP 152/9 H 06/01/17 13:57 Pulse Ox 97 06/01/17 13:57 - Medical History PMH: HTN, Hypercholesterolemia, Hyperlipidemia Denies: Chronic Kidney Disease - Social History Hx Alcohol Use: No Hx Substance Use: No ED Course And Treatment O2 Sat by Pulse Oximetry: 97 Disposition - Disposition
--- NOTE | 2017-06-01 14:56 | C.PDOC ---
History Of Present Illness Patient is a 66 y/o female who presents to the ED BIBA with complaint of pressure-like CP since this morning upon eating breakfast. Patient reports to have associated pain down left arm and headache. Patient also admits to intermittent episodes of vomiting for the last two weeks; patient attempted changing diet with no relief. Patient denies any cough, leg pain, runny nose, hemoptysis, SOB, numbness, weakness, or allergies. Patient was given 3 aspirin 325mg by EMS and 0.4 nitro sublingual in the field. Time Seen by Provider: 06/01/17 14:11 Chief Complaint (Nursing): Chest Pain History Per: Patient History/Exam Limitations: no limitations Onset/Duration Of Symptoms: Hrs (this morning) Current Symptoms Are (Timing): Still Present Quality: Pressure Associated Symptoms: Dyspnea. denies: Nausea Past Medical History Reviewed: Historical Data, Nursing Documentation, Vital Signs Vital Signs: Last Vital Signs Temp 98.3 F 06/01/17 13:57 Pulse 71 06/01/17 13:57 Resp 18 06/01/17 13:57 BP 152/79 H 06/01/17 13:57 Pulse Ox 97 06/01/17 16:38 - Medical History PMH: HTN, Hypercholesterolemia, Hyperlipidemia Denies: Chronic Kidney Disease Surgical History: No Surg Hx Family History: States: No Known Family Hx - Social History Hx Tobacco Use: No Hx Alcohol Use: No Hx Substance Use: No Review Of Systems Cardiovascular: Positive for: Chest Pain Respiratory: Positive for: Other (dyspnea). Negative for: Cough Musculoskeletal: Positive for: Arm Pain (left arm pain) Physical Exam - Physical Exam Appears: Well, Non-toxic, No Acute Distress Skin: Normal Color, Warm, Dry, No Rash Head: Atraumatic, Normacephalic Eye(s): bilateral: Normal Inspection, PERRL, EOMI Oral Mucosa: Moist Neck: Normal ROM, No Midline Cervical Tenderness, No Paracervical Tenderness, Supple Chest: Symmetrical Cardiovascular: Rhythm Regular, No Friction Rub, No Murmur Respiratory: Normal Breath Sounds, No Rales, No Rhonchi, No Wheezing Gastrointestinal/Abdominal: Soft, No Tenderness Back: No CVA Tenderness, No Vertebral Tenderness, No Paraspinal Tenderness Extremity: Normal ROM, No Tenderness, No Swelling Neurological/Psych: Oriented x3, Normal Speech, Normal Cognition, Normal Motor Gait: Steady ED Course And Treatment - Laboratory Results Result Diagrams: 06/01/17 14:58 06/01/17 14:58 ECG: Interpreted By Me, Viewed By Me ECG Interpretation: Normal Interpretation Of ECG: normal axis Rate From EC (bpm) O2 Sat by Pulse Oximetry: 97 (room air) Pulse Ox Interpretation: Normal - Radiology CXR: Viewed By Me, Read By Radiologist CXR Interpretation: Yes: Cardiomegaly, Other (Findings: mild venous congestion, right hilar prominence, patchy increased markings at the left lung base, tortuous ectatic aoirta, cardiomegaly.) - CT Scan/US Head CT Other Rad Studies (CT/US): Interpreted By Me, Read By Radiologist CT/US Interpretation: PROCEDURE: CT HEAD WITHOUT CONTRAST. HISTORY: headache. COMPARISON: None available. TECHNIQUE: Axial computed tomography images were obtained through the head/brain without intravenous contrast. Radiation dose: Total exam DLP = 828 mGy-cm. This CT exam was performed using one or more of the following dose reduction techniques: Automated exposure control, adjustment of the mA and/or kV according to patient size, and/or use of iterative reconstruction technique. FINDINGS: HEMORRHAGE: No intracranial hemorrhage. BRAIN: No mass effect or edema. Scattered focal lucencies in the subcortical and periventricular white matter suggestive for chronic microvascular ischemic change. . Punctate right basal ganglia calcification. VENTRICLES: Unremarkable. No hydrocephalus. CALVARIUM: Unremarkable. PARANASAL SINUSES: Unremarkable as visualized. No significant inflammatory changes. MASTOID AIR CELLS: Unremarkable as visualized. No inflammatory changes. OTHER FINDINGS: None. IMPRESSION: Chronic microvascular ischemic changes. No acute intracranial abnormality. If headaches persist, consider further evaluation with MRI. Medical Decision Making Medical Decision Making: The patient was found to have hyponatremia. Old records reviewed and the patient has a PMH of hyponatremia in 02/18. NS IVF started, The case was discussed with Dr. Way (hospitalist) who agrees to admit the patient to his service. Disposition - Disposition Disposition: HOSPITALIZED Disposition Time: 16:41 Condition: GOOD Forms: [facility] (Lithuanian) - POA Present On Arrival: None - Clinical Impression Clinical Impression: Hyponatremia, Chest pain - Scribe Statement The provider has reviewed the documentation as recorded by the Scribe Jagruti Pritchard All medical record entries made by the Scribe were at my direction and personally dictated by me. I have reviewed the chart and agree that the record accurately reflects my personal performance of the history, physical exam, medical decision making, and the department course for this patient. I have also personally directed, reviewed, and agree with the discharge instructions and disposition.
[2017-06-01 15:05] LABS: BASO # 0.1 K/uL (0.0-0.2); EOS # 0.1 K/uL (0.0-0.7); EOS % 1.6 % (0.0-4.0); LYMPH # 1.8 K/uL (1.0-4.3); LYMPH % 25.8 % (20.0-40.0); MEAN CELL VOLUME 82.2 fL (81.0-99.0); MEAN PLATELET VOLUME 6.6 fL (7.2-11.7); MONO # 0.5 K/uL (0.0-0.8); MONO % 7.5 % (0.0-10.0); NEUT # 4.4 K/uL (1.8-7.0); NEUT % 64.1 % (50.0-75.0); NRBC % 0.1 % (0.0-2.0); RBC 4.66 Mil/uL (3.80-5.20); RED CELL DISTRIBUTION WIDTH 13.4 % (11.5-14.5); WHITE BLOOD COUNT 6.9 K/uL (4.8-10.8)
[2017-06-01 15:17] LABS: INR 0.9; PROTHROMBIN TIME 10.4 SECONDS (9.7-12.2)
[2017-06-01 15:18] LABS: ALB/GLOB RATIO 1.2 (1.0-2.1); ALT/SGPT 32 U/L (9-52); AST/SGOT 34 U/L (14-36); BLOOD UREA NITROGEN 19 mg/dL (7-17); GFR AFRICAN-AMERICAN > 60; GFR NON-AFRICAN AMERICAN > 60
--- NOTE | 2017-06-01 15:44 | RAD ---
Chest x-ray single frontal view History: Chest pain. Comparison: 05/13/2017 Findings: Mild venous congestion. Right hilar prominence. Patchy increased markings at the left lung base. Tortuous ectatic aorta. Cardiomegaly. Degenerative changes spine and shoulders. Impression: Mild venous congestion. Right hilar prominence. Patchy increased markings at the left lung base. Tortuous ectatic aorta. Cardiomegaly.
[2017-06-01 15:45] LABS: B-TYPE NATRIURETIC PEPTIDE 191 pg/mL (0-900); CK-MB 1.71 ng/mL (0.0-3.38)
--- NOTE | 2017-06-01 15:52 | CT ---
PROCEDURE: CT HEAD WITHOUT CONTRAST. HISTORY: headache COMPARISON: None available. TECHNIQUE: Axial computed tomography images were obtained through the head/brain without intravenous contrast. Radiation dose: Total exam DLP = 828 mGy-cm. This CT exam was performed using one or more of the following dose reduction techniques: Automated exposure control, adjustment of the mA and/or kV according to patient size, and/or use of iterative reconstruction technique. FINDINGS: HEMORRHAGE: No intracranial hemorrhage. BRAIN: No mass effect or edema. Scattered focal lucencies in the subcortical and periventricular white matter suggestive for chronic microvascular ischemic change. . Punctate right basal ganglia calcification. VENTRICLES: Unremarkable. No hydrocephalus. CALVARIUM: Unremarkable. PARANASAL SINUSES: Unremarkable as visualized. No significant inflammatory changes. MASTOID AIR CELLS: Unremarkable as visualized. No inflammatory changes. OTHER FINDINGS: None. IMPRESSION: Chronic microvascular ischemic changes. No acute intracranial abnormality. If headaches persist, consider further evaluation with MRI.
[2017-06-01] MEDS ORDERED: Sodium Chloride 0.9% 1,000 ML IV ONE (16:20)
[2017-06-01] MEDS ORDERED: Sodium Chloride 0.9% 1,000 ML ONE (16:49)
--- NOTE | 2017-06-01 17:38 | CP.PCM.HP ---
History of Present Illness - History of Present Illness History of Present Illness: CC: chest pressure This is a 66 year old female with PMHx HTN, HLD who comes complaining chest pressure and left arm pain since early this morning. The patient reports eating breakfast around 9 a.m. and shortly thereafter felt chest pressure. About one hour later, the patient says she began to feel left shoulder pain that radiated to the complete arm. It was then that she called emergency services that took her blood pressure and found out that it was 208 systolic. While with emergency services she was given three aspirin and nitroglycerin. She reports by the time she got to the hospital the pain in her left arm and the chest pressure had stopped. The patient denies any previous episode. Patient denies fever, chills, dizziness, nausea, vomiting, chest pain, dysuria, hematuria, hematochezia. PMHx: HTN, HLD PSHx: Denies Allergies: NKDA Social: Denies ever smoking. Denies alcohol, drugs. Unemployed, lives by herself in a senior center. Family Hx: Denies Home meds: Lipitor, Chlorthalidone. Doses unspecified. PMD: Dr. Damaso Ramírez from [facility] Present on Admission - Present on Admission Any Indicators Present on Admission: No Review of Systems - Constitutional Constitutional: absent: Chills, Daytime Sleepiness, Headache - EENT Eyes: absent: Blurred Vision, Discharge, Loss of Peripheral Vision, Other Visual Disturbances, Loss of Vision Ears: absent: Ear Discharge, Dizziness Nose/Mouth/Throat: absent: Nasal Congestion, Nose Pain, Bleeding Gums - Breasts Breasts: absent: Pain, Swelling - Cardiovascular Cardiovascular: Chest Pain. absent: Diaphoresis, Leg Edema, Palpitations, Pedal Edema, Syncope - Respiratory Respiratory: absent: Hemoptysis, Pain on Inspiration, Change in Mucous Color - Gastrointestinal Gastrointestinal: absent: Belching, Change in Stool Character, Dyspepsia, Loose Stools, Nausea, Vomiting - Genitourinary Genitourinary: absent: Nocturia - Musculoskeletal Musculoskeletal: absent: Arthralgias, Atrophy, Muscle Weakness, Myalgias, Tingling - Integumentary Integumentary: absent: Alopecia, Lesions, Rash, Skin Pain, Swelling, Unusual Bruising - Neurological Neurological: absent: Burning Sensations, Dizziness, Numbness, Focal Weakness, Restless Legs, Syncope, Vertigo, Weakness - Psychiatric Psychiatric: absent: Anxiety, Depression, Hopelessness, Irritability - Endocrine Endocrine: absent: Polydipsia, Polyphagia, Polyuria Past Patient History - Past Medical History & Family History Past Medical History?: Yes - Past Social History Smoking Status: Never Smoked - CARDIAC Hx Hypercholesterolemia: Yes Hx Hypertension: Yes - PULMONARY Hx Respiratory Disorders: No - NEUROLOGICAL Hx Neurological Disorder: No - HEENT Hx HEENT Problems: No - RENAL Hx Chronic Kidney Disease: No - ENDOCRINE/METABOLIC Hx Endocrine Disorders: No - HEMATOLOGICAL/ONCOLOGICAL Hx Blood Disorders: No - INTEGUMENTARY Hx Dermatological Problems: No - MUSCULOSKELETAL/RHEUMATOLOGICAL Hx Musculoskeletal Disorders: No Hx Falls: No - GASTROINTESTINAL Hx Gastrointestinal Disorders: No - GENITOURINARY/GYNECOLOGICAL Hx Genitourinary Disorders: No - PSYCHIATRIC Hx Substance Use: No - SURGICAL HISTORY Hx Surgeries: No - ANESTHESIA Hx Anesthesia: No Meds Allergies/Adverse Reactions: Allergies Allergy/AdvReac Type Severity Reaction Status Date / Time No Known Allergies Allergy Unverified 02/16/17 16:18 Physical Exam - Head Exam Head Exam: ATRAUMATIC, NORMAL INSPECTION, NORMOCEPHALIC - Eye Exam Eye Exam: EOMI, Normal appearance, PERRL. absent: Periorbital tenderness Pupil Exam: NORMAL ACCOMODATION, PERRL. absent: Irregular, Unequal - ENT Exam ENT Exam: Mucous Membranes Moist, Normal Exam, Normal Oropharynx - Neck Exam Neck exam: Positive for: Normal Inspection. Negative for: Lymphadenopathy, Thyromegaly - Respiratory Exam Respiratory Exam: Clear to Auscultation Bilateral, NORMAL BREATHING PATTERN. absent: Chest Wall Tenderness, Prolonged Expiratory Phase - Cardiovascular Exam Cardiovascular Exam: Tachycardia, REGULAR RHYTHM, +S1, +S2 - GI/Abdominal Exam GI & Abdominal Exam: Normal Bowel Sounds, Soft - Extremities Exam Extremities exam: Positive for: normal inspection. Negative for: full ROM, joint swelling, pedal edema - Neurological Exam Neurological exam: Alert, CN II-XII Intact, Oriented x3, Reflexes Normal - Psychiatric Exam Psychiatric exam: Normal Affect, Normal Mood - Skin Skin Exam: Dry, Intact, Normal Color Results - Vital Signs Recent Vital Signs: Last Vital Signs Temp 98.3 F 06/01/17 13:57 Pulse 70 06/01/17 16:53 Resp 16 06/01/17 16:53 BP 161/89 H 06/01/17 16:53 Pulse Ox 97 01/28/18 16:53 - Labs Result Diagrams: 06/01/17 14:58 06/01/17 14:58 Labs: Laboratory Results - last 24 hr 06/01/17 06/01/17 06/01/17 14:58 14:58 14:58 WBC 6.9 RBC 4.66 Hgb 13.0 Hct 38.3 MCV 82.2 MCH 28.0 MCHC 34.0 RDW 13.4 Plt Count 352 MPV 6.6 L Neut % (Auto) 64.1 Lymph % (Auto) 25.8 Henderson % (Auto) 7.5 Eos % (Auto) 1.6 Baso % (Auto) 1.0 Neut # 4.4 Lymph # 1.8 Henderson # 0.5 Eos # 0.1 Baso # 0.1 PT 10.4 INR 0.9 APTT 30 Sodium 126 L Potassium 3.8 Chloride 89 L Carbon Dioxide 30 Anion Gap 10 BUN 19 H Creatinine 0.8 Est GFR ( Amer) > 60 Est GFR (Non-Af Amer) > 60 Random Glucose 95 Calcium 9.0 Total Bilirubin 0.4 AST 34 ALT 32 Alkaline Phosphatase 109 Total Creatine Kinase 76 CK-MB (Mass) 1.71 Troponin I < 0.0120 NT-Pro-B Natriuret Pep 191 Total Protein 7.4 Albumin 4.0 Globulin 3.3 Albumin/Globulin Ratio 1.2 Assessment & Plan - Assessment and Plan (Free Text) Assessment: 66 year old female with a past medical history of hypertension, hyperlipidemia who is being admitted for chest pain. Plan: Chest pain r/o ACS -Patient given 3 aspirin and 1 Nitroglycerin in the field. Patient reports no longer reporting pain. -Troponins (-)x1. Troponinx x2 ordered. Will f/u with results. -Repeat EKG at 6a.m. -TSH ordered. Will f/u with results. -Lipid panel ordered. Will f/u with results. -Aspirin 81mg PO Daily. Hyponatremia -Na 126 today. -Patient was taking Chlorthalidone. Upon discharge at last admission she was instructed to discontinue use as it could be contributing to her hyponatremia -Patient said she had a bad reaction to Norvasc and restarted the Chlorthalidone. -Will monitor at this time. h/o of Hypertension -Will hold Chlorthalidone as it could be contributing to hyponatremia -Will start low dose Coreg. -Will continue to monitor. h/o of Dyslipidemia -Lipid panel ordered. Will f/u with results -Restart home medications. PPX Heparin 5000 units q12 Pepcid 20mg BID
[2017-06-01 20:29] LABS: URINE BACTERIA RARE (<OCC); URINE BILIRUBIN NEGATIVE (NEGATIVE); URINE BLOOD NEGATIVE (NEGATIVE); URINE CLARITY Clear (Clear); URINE COLOR Yellow (YELLOW); URINE GLUCOSE (UA) NORMAL (Normal); URINE LEUKOCYTE ESTERASE NEG Leu/uL (Negative); URINE NITRATE NEGATIVE (NEGATIVE); URINE PROTEIN NEGATIVE (NEGATIVE); URINE UROBILINOGEN NORMAL mg/dL (0.2-1.0)
[2017-06-01 20:45] LABS: ALB/GLOB RATIO 1.3 (1.0-2.1); ALBUMIN 3.7 g/dL (3.5-5.0); ALT/SGPT 27 U/L (9-52); AST/SGOT 30 U/L (14-36); BLOOD UREA NITROGEN 15 mg/dL (7-17); CALCIUM 8.6 mg/dl (8.6-10.4); GFR AFRICAN-AMERICAN > 60; GFR NON-AFRICAN AMERICAN 55; HDL CHOLESTEROL 58 mg/dL (30-70)
[2017-06-01 20:46] LABS: LDL CHOLESTEROL 63 mg/dL (0-129)
[2017-06-02 14:04] LABS: BASO # 0.1 K/uL (0.0-0.2); BASO % 0.9 % (0.0-2.0); EOS % 0.6 % (0.0-4.0); HEMOGLOBIN 13.1 g/dL (11.0-16.0); LYMPH # 1.5 K/uL (1.0-4.3); LYMPH % 22.7 % (20.0-40.0); MEAN CELL VOLUME 82.9 fL (81.0-99.0); MEAN CORPUSCULAR HEMOGLOBIN 27.7 pg (27.0-31.0); MEAN CORPUSCULAR HGB CONC 33.4 g/dL (33.0-37.0); MEAN PLATELET VOLUME 6.6 fL (7.2-11.7); MONO # 0.5 K/uL (0.0-0.8); MONO % 7.4 % (0.0-10.0); NEUT # 4.6 K/uL (1.8-7.0); NEUT % 68.4 % (50.0-75.0); RBC 4.74 Mil/uL (3.80-5.20); RED CELL DISTRIBUTION WIDTH 13.7 % (11.5-14.5); WHITE BLOOD COUNT 6.7 K/uL (4.8-10.8)
--- NOTE | 2017-06-02 14:19 | CP.PCM.PN ---
Subjective - Date & Time of Evaluation Date of Evaluation: 06/02/17 Time of Evaluation: 10:00 - Subjective Subjective: Medicine progress note for Dr. Pretty Patient seen and examined at bedside. Patient reports that she never really did have chest pain. It was more of a pressure that resolved quickly. Her left arm pain is resolved, however. Patient did not state this to me when I saw her myself, but she did later state that she had abdominal pain. Objective - Vital Signs/Intake and Output Vital Signs (last 24 hours): Temp Pulse Resp BP Pulse Ox 98.5 F 88 18 150/87 97 06/02/17 07:00 06/02/17 07:00 06/02/17 07:00 06/02/17 07:00 06/02/17 08:35 Intake and Output: 06/02/17 06/02/17 06:59 18:59 Intake Total 240 Balance 240 - Medications Medications: Current Medications Aspirin (Ecotrin) 81 mg PO DAILY [facility] Last Admin: 06/02/17 09:17 Dose: 81 mg Famotidine (Pepcid) 20 mg IVP Q12 [facility] Last Admin: 06/02/17 09:16 Dose: 20 mg Heparin Sodium (Porcine) (Heparin) 5,000 units SC Q12 [facility] Last Admin: 06/02/17 09:17 Dose: 5,000 units Hydralazine HCl (Apresoline) 10 mg IVP Q6H PRN PRN Reason: SBP<160 Pneumococcal Polyvalent Vaccine (Pneumovax 23 Vaccine) 0.5 ml IM .ONCE ONE Stop: 06/04/17 10:01 Rosuvastatin Calcium (Crestor) 10 mg PO HS [facility] Last Admin: 06/01/17 21:42 Dose: 10 mg - Labs Labs: 06/02/17 13:57 06/01/17 20:15 PT 10.4 SECONDS (9.7-12.2) 06/01/17 14:58 INR 0.9 06/01/17 14:58 APTT 30 SECONDS (21-34) 06/01/17 14:58 - Constitutional Appears: No Acute Distress - Head Exam Head Exam: ATRAUMATIC, NORMOCEPHALIC - Eye Exam Eye Exam: EOMI, Normal appearance - ENT Exam ENT Exam: Mucous Membranes Moist - Respiratory Exam Respiratory Exam: Clear to Ausculation Bilateral, NORMAL BREATHING PATTERN. absent: Rales, Rhonchi, Wheezes - Cardiovascular Exam Cardiovascular Exam: REGULAR RHYTHM, +S1, +S2 - GI/Abdominal Exam GI & Abdominal Exam: Soft, Normal Bowel Sounds. absent: Distended, Tenderness - Extremities Exam Extremities Exam: absent: Pedal Edema, Tenderness - Neurological Exam Neurological Exam: Alert, Awake, Oriented x3 - Psychiatric Exam Psychiatric exam: Normal Affect, Normal Mood - Skin Skin Exam: Dry, Intact, Normal Color, Warm Assessment and Plan - Assessment and Plan (Free Text) Plan: Chest pain r/o ACS Troponins negative x3, but 3rd EKG with T wave changes Cardiology consult with Dr. Fernandes, help appreciated Patient is for stress test and myocardial perfusion study tomorrow TSH and lipid panel WNL Aspirin 81mg PO Daily Hyponatremia Na 129 today after discontinuing Chlorthalidone which she was taking at home Patient advised on previous admission that Chlorthalidone might be contributing to hyponatremia but per documentation, she had continued taking it Norvasc 5 mg PO daily ordered History of Hypertension Held Chlorthalidone as it could be contributing to hyponatremia Norvasc 5 mg PO daily ordered Hydralazine 10 mg IV Q6 prn SBP<160 History of Dyslipidemia Lipid panel WNL Home Lipitor is non-formulary. Crestor 10 mg PO HS Prophylactic Measure Heparin 5000 units q12 Pepcid 20mg BID Case DW Dr. Sukhwinder Milton PGY-1
[2017-06-02 14:25] LABS: ALB/GLOB RATIO 1.3 (1.0-2.1); ALT/SGPT 30 U/L (9-52); AMYLASE 104 U/L (30-110); AST/SGOT 38 U/L (14-36); BLOOD UREA NITROGEN 13 mg/dL (7-17); CALCIUM 8.8 mg/dl (8.6-10.4); GFR AFRICAN-AMERICAN > 60; GFR NON-AFRICAN AMERICAN > 60; LIPASE 183 U/L (23-300)
--- NOTE | 2017-06-02 15:51 | CARD ---
APPROVED REPORT EXAM: Two-dimensional and M-mode echocardiogram with Doppler and color Doppler. Other Information Quality : AverageRhythm : 2D DIMENSIONS IVSd1.3 (0.7-1.1cm)LVDd4.2 (3.9-5.9cm) PWd1.1 (0.7-1.1cm)LVDs2.6 (2.5-4.0cm) FS (%) 37.6 %LVEF (%)68.1 (>50%) M-Mode DIMENSIONS Left Atrium (MM)4.36 (2.5-4.0cm)IVSd1.11 (0.7-1.1cm) Aortic Root3.84 (2.2-3.7cm)LVDd5.40 (4.0-5.6cm) Aortic Cusp Exc.2.11 (1.5-2.0cm)PWd1.37 (0.7-1.1cm) FS (%) 36 %LVDs3.45 (2.0-3.8cm) LVEF (%)65 (>50%) Aortic Valve AI P 1/2 [id number] Mitral Valve MV E [id number]/sE/A ratio0.0 TDI E/Lateral E'0.0E/Medial E'0.0 Tricuspid Valve TR Peak [id number] Peak [id number] LEFT VENTRICLE The left ventricle is normal size. Asymmetric septal hypertrophy The left ventricular function is normal. The left ventricular ejection fraction is within the normal range. There is normal LV segmental wall motion. Transmitral Doppler flow pattern is Grade I-abnormal relaxation pattern. RIGHT VENTRICLE The right ventricle is normal size. There is normal right ventricular wall thickness. The right ventricular systolic function is normal. ATRIA The left atrium is borderline dilated. The right atrium size is normal. AORTIC VALVE The aortic valve is mildly thickened. There is mild aortic regurgitation. MITRAL VALVE The mitral valve is mildly thickened. There is no mitral valve stenosis. There is no mitral valve regurgitation noted. TRICUSPID VALVE There is mild to moderate pulmonary hypertension. GREAT VESSELS The aortic root is mildly enlarged. <Conclusion> The left ventricle is normal size. Asymmetric septal hypertrophy The left ventricular function is normal. The left ventricular ejection fraction is within the normal range. There is normal LV segmental wall motion. Transmitral Doppler flow pattern is Grade I-abnormal relaxation pattern. There is mild aortic regurgitation. The aortic root is mildly enlarged. There is mild to moderate pulmonary hypertension.
--- NOTE | 2017-06-02 17:14 | CARD ---
APPROVED REPORT EKG Measurement Heart [id number] <Conclusion> Normal sinus rhythm Normal ECG
--- NOTE | 2017-06-02 19:31 | US ---
EXAM: US Abdomen Complete EXAM DATE/TIME: Exam ordered 06/02/2017 12:03 PM CLINICAL HISTORY: 66 years old, female; Pain; Abdominal pain TECHNIQUE: Real-time ultrasound of the abdomen (complete) with image documentation. COMPARISON: No relevant prior studies available. FINDINGS: Liver: The liver echotexture is mildly coarsened. There is normal blood flow direction in the main portal vein. Normal phasic flow is noted within the middle hepatic vein. A hepatic calcification is present. Gallbladder: Unremarkable. No gallstones. Common bile duct: The common bile duct measures 5 mm. No stones. No dilation. Pancreas: The pancreatic tail is not well-seen. Kidneys: The right kidney measures 11.4 x 4.3 x 4.9 cm. A simple cyst is seen in the midportion of the kidney measuring 1.2 cm in greatest diameter. The left kidney measures 11.5 x 5.1 x 5.8 cm. No stones. No hydronephrosis. Spleen: The spleen measures 6.2 cm in craniocaudal span. Aorta: Unremarkable. No aneurysm. Inferior vena cava: Unremarkable. IMPRESSION: 1. No acute findings 2. Mildly coarsened liver echotexture with hepatic calcification. The calcification suggest previous granulomatous disease. The coarsened echotexture could reflect mild underlying infiltrative process or be technical in nature. 3. No gallstones. 4. The pancreatic tail is not well-seen due to bowel gas. 5. Right renal cyst.
--- NOTE | 2017-06-02 21:06 | CP.PCM.CON ---
<Adrián Powers Joshua - Last Filed: 06/02/17 21:24> History of Present Illness - History of Present Illness History of Present Illness: Cardiology consult note for Dr. Dom Powers DO, PGY - 1 Reason For Consult: Chest Pain HPI: Mrs. Mckenzie is a very pleasant 66 year old Yi and Lithuanian speaking female with a past medical history of hypertension and hyperlipidemia who presented to [facility] ED with a complaint of 8 hours duration of pressure-like, 7/10, chest pain radiating to her left arm with an associated symptom of fatigue, which did not get better or worse with any intervention. Patient states that she decided to come to the ED when the pain did not relent. Mrs. Mckenzie states that her medical problems started a few months ago when she started a rigorous diet and exercise program. She states that she was able to "walk for miles," and had lost a significant amount of weight when she started getting dizzy and light headed with little exertion. She was initially diagnosed with dehydration and hyponatremia, and this was during her last visit to this hospital in February 2017. Since that time, she has not been able to regain her prior level of activity. She states she has never seen a chair springer out patient, and has never had a stress test, ECHO, or catheterization in the past. Past Surgical History: Patient denies Past Medical History: Hypertension, Hyperlipidemia Allergies: NKDA Social History: Patient denies alcohol, tobacco, and illicits Hospitalizations: 02/2017 for dehydration and hyponatremia Family History: Hypertension Medications: Chlorthalidone 25 mg and Lipitor (unknown dose) Review of Systems: Constitutional: patient denies fever, chills, generalized weakness ENT: patient denies dysphagia, otalgia, hearing deficit, rhinorrhea Eyes: patient denies sudden loss of vision, diplopia, blurred vision MSK: patient denies muscle stiffness, joint pain, extremity cramping Cardio: see hpi Pulm: patient denies cough, hemoptysis, wheeze Gastrointestinal: patient denies loss of appetite, pain, constipation, melena , nausea, vomiting, diarrhea Genitourinary: patient denies burning on urination, urinary frequency, hematuria, urinary urgency Neuro: patient denies paresis, paresthesia, dizziness, headache, numbness , tingling Derm: patient denies skin changes, lesions, nail changes Endo: patient denies intolerance to heat/cold, diaphoresis, night sweats, polydipsia Psych: patient denies anxiety, depression, mood changes Past Patient History - Past Medical History & Family History Past Medical History?: Yes - Past Social History Smoking Status: Never Smoked - CARDIAC Hx Cardiac Disorders: Yes Hx Hypercholesterolemia: Yes Hx Hypertension: Yes - PULMONARY Hx Respiratory Disorders: No - NEUROLOGICAL Hx Neurological Disorder: No - HEENT Hx HEENT Problems: No - RENAL Hx Chronic Kidney Disease: No - ENDOCRINE/METABOLIC Hx Endocrine Disorders: No - HEMATOLOGICAL/ONCOLOGICAL Hx Blood Disorders: No - INTEGUMENTARY Hx Dermatological Problems: No - MUSCULOSKELETAL/RHEUMATOLOGICAL Hx Musculoskeletal Disorders: No Hx Falls: No - GASTROINTESTINAL Hx Gastrointestinal Disorders: No - GENITOURINARY/GYNECOLOGICAL Hx Genitourinary Disorders: No - PSYCHIATRIC Hx Psychophysiologic Disorder: No Hx Substance Use: No - SURGICAL HISTORY Hx Surgeries: No Other/Comment: no further information given - ANESTHESIA Hx Anesthesia: No Hx Anesthesia Reactions: No Hx Malignant Hyperthermia: No Has any member of the family had a problem w/ anesthesia?: No Meds Allergies/Adverse Reactions: Allergies Allergy/AdvReac Type Severity Reaction Status Date / Time No Known Allergies Allergy Unverified 02/16/17 16:18 - Medications Medications: Current Medications Amlodipine Besylate (Norvasc) 5 mg PO DAILY [facility] Last Admin: 06/02/17 20:24 Dose: 5 mg Aspirin (Ecotrin) 81 mg PO DAILY [facility] Last Admin: 06/02/17 09:17 Dose: 81 mg Famotidine (Pepcid) 20 mg IVP Q12 [facility] Last Admin: 06/02/17 09:16 Dose: 20 mg Heparin Sodium (Porcine) (Heparin) 5,000 units SC Q12 [facility] Last Admin: 06/02/17 09:17 Dose: 5,000 units Hydralazine HCl (Apresoline) 10 mg IVP Q6H PRN PRN Reason: SBP<160 Pneumococcal Polyvalent Vaccine (Pneumovax 23 Vaccine) 0.5 ml IM .ONCE ONE Stop: 06/04/17 10:01 Rosuvastatin Calcium (Crestor) 10 mg PO [facility] Last Admin: 06/01/17 21:42 Dose: 10 mg Physical Exam - Additional Findings Additional findings: Physical Exam: Vital Signs as below Const'l: awake alert & oriented x 4, no acute distress Head/Neck: neck supple, no jvd, trachea midline, carotid midline, no cervical/head mass Eyes: pupils equally reactive to light and accommodation, nonicteric sclera, extraocular intact ENT: +mucous membranes dry; auditory acuity grossly intact, throat not congested, no nasal deformity Cardio: regular rate, regular rhythm, no murmurs rubs gallops, no carotid bruit, normal s1, s2 Pulm: no accessory muscle use, equal normal breath sounds bilaterally, clear to ausculation bilaterally Abd: soft non tender non-distended, normal bowel sounds x 4 quadrants, no palpable masses Derm: no rashes, no ulcers, no lesions Extr: +visbily dry extremities; no edema, no cyanosis, no calf tenderness , no lesions, no varicosities Neuro: cranial nerves II-XII grossly intact, upper extremity and lower extremity 5/5 muscle strength bilaterally, no loss of sensation in upper extremities, lower extremities bilaterally and core Results - Vital Signs Recent Vital Signs: Last Vital Signs Temp 97.9 F 06/02/17 15:00 Pulse 90 06/02/17 15:00 Resp 21 06/02/17 15:00 BP 178/88 H 06/02/17 15:00 Pulse Ox 97 06/02/17 15:00 - Labs Result Diagrams: 06/02/17 13:57 06/02/17 13:57 Labs: Laboratory Results - last 24 hr 06/01/17 06/01/17 06/02/17 20:15 20:15 04:24 WBC RBC Hgb Hct MCV MCH MCHC RDW Plt Count MPV Neut % (Auto) Lymph % (Auto) Posey % (Auto) Eos % (Auto) Baso % (Auto) Neut # Lymph # Posey # Eos # Baso # Sodium Potassium Chloride Carbon Dioxide Anion Gap BUN Creatinine Est GFR ( Amer) Est GFR (Non-Af Amer) Random Glucose Hemoglobin A1c 5.9 Lactic Acid Calcium Total Bilirubin AST ALT Alkaline Phosphatase Troponin I < 0.0120 Total Protein Albumin Globulin Albumin/Globulin Ratio Amylase Lipase TSH 3rd Generation 2.40 06/02/17 06/02/17 06/02/17 13:57 13:57 13:57 WBC 6.7 RBC 4.74 Hgb 13.1 Hct 39.3 MCV 82.9 MCH 27.7 MCHC 33.4 RDW 13.7 Plt Count 367 MPV 6.6 L Neut % (Auto) 68.4 Lymph % (Auto) 22.7 Posey % (Auto) 7.4 Eos % (Auto) 0.6 Baso % (Auto) 0.9 Neut # 4.6 Lymph # 1.5 Posey # 0.5 Eos # 0.0 Baso # 0.1 Sodium 129 L Potassium 3.6 Chloride 92 L Carbon Dioxide 30 Anion Gap 11 BUN 13 Creatinine 0.8 Est GFR ( Amer) > 60 Est GFR (Non-Af Amer) > 60 Random Glucose 97 Hemoglobin A1c Lactic Acid 1.0 Calcium 8.8 Total Bilirubin 0.5 AST 38 H D ALT 30 Alkaline Phosphatase 101 Troponin I Total Protein 7.0 Albumin 4.0 Globulin 3.0 Albumin/Globulin Ratio 1.3 Amylase 104 Lipase 183 TSH 3rd Generation Assessment & Plan - Assessment and Plan (Free Text) Assessment: Assessment and Plan 66 year old female with past medical history of hypertension and hyperlipidemia presents for chest pain radiating to left arm. Troponins and EKG negative for ACS. ECHO on this visit shows Asymmetric septal hypertrophy, Grade I-abnormal relaxation pattern, Mild AR and Aortic root is mildly enlarged, and Mild to moderate Pulmonary HTN. Patient has never had full cardiac work up. Patient is also dehydrated and hyponatremic. Chest pain likely 2/2 demand ischemia - ECHO, EKG, and Tropes as above - 10 year ASCVD risk is 11.7% - Patient scheduled for stress test at 10 AM tomorrow morning - Entered order for NPO after midnight tonight Dehydration - Per primary team Hyponatremia - Per primary team Hypertension - Amlodipine - Hydralazine prn GI/DVT PPXS - Per primary team Dispo: We will take patient for stress test, scheduled for 10A tomorrow morning. <Raymundo Fernandes - Last Filed: 06/02/17 23:24> Meds - Medications Medications: Current Medications Amlodipine Besylate (Norvasc) 5 mg PO DAILY [facility] Last Admin: 06/02/17 20:24 Dose: 5 mg Aspirin (Ecotrin) 81 mg PO DAILY [facility] Last Admin: 06/02/17 09:17 Dose: 81 mg Famotidine (Pepcid) 20 mg IVP Q12 [facility] Last Admin: 06/02/17 22:06 Dose: 20 mg Heparin Sodium (Porcine) (Heparin) 5,000 units SC Q12 [facility] Last Admin: 06/02/17 22:06 Dose: 5,000 units Hydralazine HCl (Apresoline) 10 mg IVP Q6H PRN PRN Reason: SBP<160 Pneumococcal Polyvalent Vaccine (Pneumovax 23 Vaccine) 0.5 ml IM .ONCE ONE Stop: 06/04/17 10:01 Rosuvastatin Calcium (Crestor) 10 mg PO HS [facility] Last Admin: 06/02/17 22:06 Dose: 10 mg Results - Vital Signs Recent Vital Signs: Last Vital Signs Temp 97.9 F 06/02/17 15:00 Pulse 90 06/02/17 15:00 Resp 21 06/02/17 15:00 BP 178/88 H 06/02/17 15:00 Pulse Ox 97 06/02/17 15:00 - Labs Result Diagrams: 06/02/17 13:57 06/02/17 13:57 Labs: Laboratory Results - last 24 hr 06/01/17 06/02/17 06/02/17 20:15 04:24 13:57 WBC RBC Hgb Hct MCV MCH MCHC RDW Plt Count MPV Neut % (Auto) Lymph % (Auto) Posey % (Auto) Eos % (Auto) Baso % (Auto) Neut # Lymph # Posey # Eos # Baso # Sodium 129 L Potassium 3.6 Chloride 92 L Carbon Dioxide 30 Anion Gap 11 BUN 13 Creatinine 0.8 Est GFR ( Amer) > 60 Est GFR (Non-Af Amer) > 60 Random Glucose 97 Hemoglobin A1c 5.9 Lactic Acid Calcium 8.8 Total Bilirubin 0.5 AST 38 H D ALT 30 Alkaline Phosphatase 101 Troponin I < 0.0120 Total Protein 7.0 Albumin 4.0 Globulin 3.0 Albumin/Globulin Ratio 1.3 Amylase 104 Lipase 183 06/02/17 06/02/17 13:57 13:57 WBC 6.7 RBC 4.74 Hgb 13.1 Hct 39.3 MCV 82.9 MCH 27.7 MCHC 33.4 RDW 13.7 Plt Count 367 MPV 6.6 L Neut % (Auto) 68.4 Lymph % (Auto) 22.7 Posey % (Auto) 7.4 Eos % (Auto) 0.6 Baso % (Auto) 0.9 Neut # 4.6 Lymph # 1.5 Posey # 0.5 Eos # 0.0 Baso # 0.1 Sodium Potassium Chloride Carbon Dioxide Anion Gap BUN Creatinine Est GFR ( Amer) Est GFR (Non-Af Amer) Random Glucose Hemoglobin A1c Lactic Acid 1.0 Calcium Total Bilirubin AST ALT Alkaline Phosphatase Troponin I Total Protein Albumin Globulin Albumin/Globulin Ratio Amylase Lipase Attending/Attestation - Attestation I have personally seen and examined this patient.: Yes I have fully participated in the care of the patient.: Yes I have reviewed all pertinent clinical information: Yes Notes (Text): 06/02/17 23:24 CP ASCVD risk intermediate to high acs ruled out plan for stress test in am
[2017-06-03 06:33] LABS: BASO # 0.1 K/uL (0.0-0.2); EOS # 0.1 K/uL (0.0-0.7); EOS % 2.3 % (0.0-4.0); HEMOGLOBIN 13.1 g/dL (11.0-16.0); LYMPH # 1.8 K/uL (1.0-4.3); LYMPH % 28.9 % (20.0-40.0); MEAN CELL VOLUME 82.5 fL (81.0-99.0); MEAN CORPUSCULAR HEMOGLOBIN 28.2 pg (27.0-31.0); MEAN CORPUSCULAR HGB CONC 34.2 g/dL (33.0-37.0); MEAN PLATELET VOLUME 6.6 fL (7.2-11.7); MONO # 0.4 K/uL (0.0-0.8); MONO % 6.8 % (0.0-10.0); NEUT # 3.7 K/uL (1.8-7.0); NRBC % 0.1 % (0.0-2.0); RBC 4.65 Mil/uL (3.80-5.20); WHITE BLOOD COUNT 6.1 K/uL (4.8-10.8)
[2017-06-03 06:54] LABS: MAGNESIUM 1.8 mg/dL (1.6-2.3)
--- NOTE | 2017-06-03 07:31 | CP.PCM.PN ---
Subjective - Date & Time of Evaluation Date of Evaluation: 06/03/17 Time of Evaluation: 09:00 - Subjective Subjective: Medicine progress note for Dr. Pretty Patient seen and examined. Objective - Vital Signs/Intake and Output Vital Signs (last 24 hours): Temp Pulse Resp BP Pulse Ox 98.0 F 67 20 152/93 H 98 06/03/17 04:10 06/03/17 04:10 06/03/17 04:10 06/03/17 04:10 06/03/17 04:10 Intake and Output: 06/03/17 06/03/17 06:59 18:59 Intake Total 350 Balance 350 - Medications Medications: Current Medications Amlodipine Besylate (Norvasc) 5 mg PO DAILY [facility] Last Admin: 06/02/17 20:24 Dose: 5 mg Aspirin (Ecotrin) 81 mg PO DAILY [facility] Last Admin: 06/02/17 09:17 Dose: 81 mg Famotidine (Pepcid) 20 mg IVP Q12 [facility] Last Admin: 06/02/17 22:06 Dose: 20 mg Heparin Sodium (Porcine) (Heparin) 5,000 units SC Q12 [facility] Last Admin: 06/02/17 22:06 Dose: 5,000 units Pneumococcal Polyvalent Vaccine (Pneumovax 23 Vaccine) 0.5 ml IM .ONCE ONE Stop: 06/04/17 10:01 Rosuvastatin Calcium (Crestor) 10 mg PO HS [facility] Last Admin: 06/02/17 22:06 Dose: 10 mg - Labs Labs: 06/03/17 06:25 06/02/17 13:57 PT 10.4 SECONDS (9.7-12.2) 06/01/17 14:58 INR 0.9 06/01/17 14:58 APTT 30 SECONDS (21-34) 06/01/17 14:58 - Additional Findings Additional findings: - Constitutional Appears: No Acute Distress - Head Exam Head Exam: ATRAUMATIC, NORMOCEPHALIC - Eye Exam Eye Exam: EOMI, Normal appearance - ENT Exam ENT Exam: Mucous Membranes Moist - Respiratory Exam Respiratory Exam: Clear to Ausculation Bilateral, NORMAL BREATHING PATTERN. absent: Rales, Rhonchi, Wheezes - Cardiovascular Exam Cardiovascular Exam: REGULAR RHYTHM, +S1, +S2 - GI/Abdominal Exam GI & Abdominal Exam: Soft, Normal Bowel Sounds. absent: Distended, Tenderness - Extremities Exam Extremities Exam: absent: Pedal Edema, Tenderness - Neurological Exam Neurological Exam: Alert, Awake, Oriented x3 - Psychiatric Exam Psychiatric exam: Normal Affect, Normal Mood - Skin Skin Exam: Dry, Intact, Normal Color, Warm Assessment and Plan - Assessment and Plan (Free Text) Plan: Chest pain r/o ACS Troponins negative x3, but 3rd EKG with T wave changes Cardiology consult with Dr. Fernandes, help appreciated Patient is for stress test and myocardial perfusion study tomorrow TSH and lipid panel WNL Aspirin 81mg PO Daily Hyponatremia Na 129 today after discontinuing Chlorthalidone which she was taking at home Patient advised on previous admission that Chlorthalidone might be contributing to hyponatremia but per documentation, she had continued taking it Norvasc 5 mg PO daily ordered History of Hypertension Held Chlorthalidone as it could be contributing to hyponatremia Norvasc 5 mg PO daily ordered Hydralazine 10 mg IV Q6 prn SBP<160 History of Dyslipidemia Lipid panel WNL Home Lipitor is non-formulary. Crestor 10 mg PO HS Prophylactic Measure Heparin 5000 units q12 Pepcid 20mg BID
[2017-06-03] MEDS ORDERED: Aminophylline 25 mg/ml Inj ONE (08:44)
[2017-06-03 15:48] VITALS: RESP 20
[2017-06-03] MEDS: Folic Acid 1 MG, Thiamine 100 MG, Multivitamin (MVI) 10 ML in Dextrose 5% In Water 1,00... IV SCH (17:49)
--- NOTE | 2017-06-03 18:13 | CP.PCM.DIS ---
Provider - Provider Date of Admission: 06/01/17 16:41 Attending physician: Georgia Pretty DO Primary care physician: Dr. Ramírez Consults: Cardiology-Dr. Fernandes Time Spent in preparation of Discharge (in minutes): 40 Diagnosis - Discharge Diagnosis (1) Chest pain, rule out acute myocardial infarction Status: Acute (2) History of hypertension Status: Chronic (3) History of hyperlipidemia Status: Chronic (4) Hyponatremia Status: Chronic Hospital Course - Lab Results Lab Results: Most Recent Lab Values WBC 6.1 K/uL (4.8-10.8) 06/03/17 06:25 RBC 4.65 Mil/uL (3.80-5.20) 06/03/17 06:25 Hgb 13.1 g/dL (11.0-16.0) 06/03/17 06:25 Hct 38.4 % (34.0-47.0) 06/03/17 06:25 MCV 82.5 fL (81.0-99.0) 06/03/17 06:25 MCH 28.2 pg (27.0-31.0) 06/03/17 06:25 MCHC 34.2 g/dL (33.0-37.0) 06/03/17 06:25 RDW 14.0 % (11.5-14.5) 06/03/17 06:25 Plt Count 339 K/uL (130-400) 06/03/17 06:25 MPV 6.6 fL (7.2-11.7) L 06/03/17 06:25 Neut % (Auto) 61.0 % (50.0-75.0) 06/03/17 06:25 Lymph % (Auto) 28.9 % (20.0-40.0) 06/03/17 06:25 [place] % (Auto) 6.8 % (0.0-10.0) 06/03/17 06:25 Eos % (Auto) 2.3 % (0.0-4.0) 06/03/17 06:25 Baso % (Auto) 1.0 % (0.0-2.0) 06/03/17 06:25 Neut # 3.7 K/uL (1.8-7.0) 06/03/17 06:25 Lymph # 1.8 K/uL (1.0-4.3) 06/03/17 06:25 [place] # 0.4 K/uL (0.0-0.8) 06/03/17 06:25 Eos # 0.1 K/uL (0.0-0.7) 06/03/17 06:25 Baso # 0.1 K/uL (0.0-0.2) 06/03/17 06:25 PT 10.4 SECONDS (9.7-12.2) 06/01/17 14:58 INR 0.9 06/01/17 14:58 APTT 30 SECONDS (21-34) 06/01/17 14:58 Sodium 129 mmol/L (132-148) L 06/02/17 13:57 Potassium 3.6 mmol/L (3.6-5.2) 06/02/17 13:57 Chloride 92 mmol/L (98-107) L 06/02/17 13:57 Carbon Dioxide 30 mmol/L (22-30) 06/02/17 13:57 Anion Gap 11 (10-20) 06/02/17 13:57 BUN 13 mg/dL (7-17) 06/02/17 13:57 Creatinine 0.8 mg/dL (0.7-1.2) 06/02/17 13:57 Est GFR ( Amer) > 60 06/02/17 13:57 Est GFR (Non-Af Amer) > 60 06/02/17 13:57 Random Glucose 97 mg/dL (65-105) 06/02/17 13:57 Hemoglobin A1c 5.9 % (4.2-6.5) 06/01/17 20:15 Lactic Acid 1.0 mmol/L (0.7-2.1) 06/02/17 13:57 Calcium 8.8 mg/dl (8.6-10.4) 06/02/17 13:57 Phosphorus 3.8 mg/dL (2.5-4.5) 06/03/17 06:25 Magnesium 1.8 mg/dL (1.6-2.3) 06/03/17 06:25 Total Bilirubin 0.5 mg/dL (0.2-1.3) 06/02/17 13:57 AST 38 U/L (14-36) H D 06/02/17 13:57 ALT 30 U/L (9-52) 06/02/17 13:57 Alkaline Phosphatase 101 U/L (38-126) 06/02/17 13:57 Total Creatine Kinase 76 U/L (30-135) 06/01/17 14:58 CK-MB (Mass) 1.71 ng/mL (0.0-3.38) 06/01/17 14:58 Troponin I < 0.0120 ng/mL (0.00-0.120) 06/02/17 04:24 NT-Pro-B Natriuret Pep 191 pg/mL (0-900) 06/01/17 14:58 Total Protein 7.0 g/dL (6.3-8.3) 06/02/17 13:57 Albumin 4.0 g/dL (3.5-5.0) 06/02/17 13:57 Globulin 3.0 gm/dL (2.2-3.9) 06/02/17 13:57 Albumin/Globulin Ratio 1.3 (1.0-2.1) 06/02/17 13:57 Triglycerides 83 mg/dL (0-149) 06/01/17 20:15 Cholesterol 133 mg/dL (0-199) 06/01/17 20:15 LDL Cholesterol Direct 63 mg/dL (0-129) 06/01/17 20:15 HDL Cholesterol 58 mg/dL (30-70) 06/01/17 20:15 Amylase 104 U/L (30-110) 06/02/17 13:57 Lipase 183 U/L (23-300) 06/02/17 13:57 TSH 3rd Generation 2.40 mIU/L (0.46-4.68) 06/01/17 20:15 Urine Color Yellow (YELLOW) 06/01/17 20:15 Urine Clarity Clear (Clear) 06/01/17 20:15 Urine pH 7.0 (5.0-8.0) 06/01/17 20:15 Ur Specific Morris 1.011 (1.003-1.030) 06/01/17 20:15 Urine Protein Negative mg/dL (NEGATIVE) 06/01/17 20:15 Urine Glucose (UA) Normal mg/dL (Normal) 06/01/17 20:15 Urine Ketones Negative mg/dL (NEGATIVE) 06/01/17 20:15 Urine Blood Negative (NEGATIVE) 06/01/17 20:15 Urine Nitrate Negative (NEGATIVE) 06/01/17 20:15 Urine Bilirubin Negative (NEGATIVE) 06/01/17 20:15 Urine Urobilinogen Normal mg/dL (0.2-1.0) 06/01/17 20:15 Ur Leukocyte Esterase Neg Brianna/uL (Negative) 06/01/17 20:15 Urine WBC (Auto) < 1 /hpf (0-5) 06/01/17 20:15 Urine RBC (Auto) 2 /hpf (0-3) 06/01/17 20:15 Urine Bacteria Rare (<OCC) 06/01/17 20:15 - Hospital Course Hospital Course: Initial note: "This is a 66 year old female with PMHx HTN, HLD who comes complaining chest pressure and left arm pain since early this morning. The patient reports eating breakfast around 9 a.m. and shortly thereafter felt chest pressure. About one hour later, the patient says she began to feel left shoulder pain that radiated to the complete arm. It was then that she called emergency services that took her blood pressure and found out that it was 208 systolic. While with emergency services she was given three aspirin and nitroglycerin. She reports by the time she got to the hospital the pain in her left arm and the chest pressure had stopped. The patient denies any previous episode. Patient denies fever, chills, dizziness, nausea, vomiting, chest pain, dysuria, hematuria, hematochezia." Hospital Course: Patient admitted for chest pain and to rule out ACS. Three sets of cardiac enzymes have been unremarkable. Sales Administration Specialist Dr. Fernandes consulted for abnormal T waves seen on one of the EKGs that were done on this admission. Echocardiogram showed normal left ventricular function with EF 65%. Patient underwent stress test and myocardial perfusion scan which was reviewed by cardiology. Per Dr. Fernandes, patient stable for discharge from cardiology perspective. Patient complained of abdominal pain during this admission. Abdominal ultrasound ordered and showed hepatic calcification. Patient's abdominal pain likely symptoms of gastritis. Outpatient follow up was recommended to the patient. Patient with chronic hyponatremia exacerbated by use of Chlorthalidone. Patient was strongly advised to stop taking this medication, and Amlodipine was prescribed in its place. This is a summary of the hospital course. For more information, refer to the medical records. Discharge Exam - Head Exam Head Exam: ATRAUMATIC, NORMOCEPHALIC - Eye Exam Eye Exam: EOMI, Normal appearance - ENT Exam ENT Exam: Mucous Membranes Moist - Respiratory Exam Respiratory Exam: Clear to PA & Lateral, NORMAL BREATHING PATTERN. absent: Rales, Rhonchi, Wheezes, Respiratory Distress - Cardiovascular Exam Cardiovascular Exam: REGULAR RHYTHM, +S1, +S2 - GI/Abdominal Exam GI & Abdominal Exam: Normal Bowel Sounds, Soft, Tenderness (epigastric). absent : Distended, Guarding - Extremities Exam Extremities exam: pedal pulses present - Neurological Exam Neurological exam: Alert, CN II-XII Intact, Oriented x3 - Psychiatric Exam Psychiatric exam: Anxious - Skin Skin Exam: Dry, Intact, Normal Color, Warm Discharge Plan - Discharge Medications Prescriptions: amLODIPine [Norvasc] 5 mg PO DAILY #30 tab Aspirin [Ecotrin] 81 mg PO DAILY #30 tabec Atorvastatin [Lipitor] 1 tab PO HS #30 tab Multivitamin [Multivitamins] 1 cap PO DAILY #30 capsule - Follow Up Plan Condition: GOOD Disposition: HOME/ ROUTINE Additional Instructions: Please take Amlodipine 5 mg once a day. Please take Lipitor 20 mg once a day. Please take Aspirin 81 mg once a day. Please take Multivitamins daily. Please follow up with Dr. Ramírez as soon as possible within 1 week. Please stop taking Chlorthalidone. If there are any new or worsening symptoms, please return to the nearest emergency room. Referrals: Damaso Ramírez MD [Medical Doctor] -
--- NOTE | 2017-06-03 21:57 | CP.PCM.PN ---
Subjective - Date & Time of Evaluation Date of Evaluation: 06/03/17 Time of Evaluation: 21:54 - Subjective Subjective: Cardiology progress note for Dr. Dom Powers, PGY - 1 Patient seen and examined at bedside. Patient denies any complaints at this time, including chest pain, shortness of breath, nausea, vomiting, diarrhea. Stress test explained to patient, as she is awaiting test this am at 10A. Objective - Vital Signs/Intake and Output Vital Signs (last 24 hours): Temp Pulse Resp BP Pulse Ox 98.4 F 75 20 104/70 96 06/03/17 15:15 06/03/17 16:12 06/03/17 15:15 06/03/17 15:15 06/03/17 15:15 Intake and Output: 06/03/17 06/04/17 18:59 06:59 Intake Total 240 Balance 240 - Medications Medications: Current Medications Amlodipine Besylate (Norvasc) [address] [facility] Last Admin: 06/03/17 10:16 Dose: 5 mg Aspirin (Ecotrin) [address] [facility] Last Admin: 06/03/17 10:16 Dose: 81 mg Famotidine (Pepcid) [address] [facility] Last Admin: 06/03/17 21:38 Dose: 20 mg Heparin Sodium (Porcine) (Heparin) 5,[address] [facility] Last Admin: 06/03/17 21:37 Dose: 5,000 units Folic Acid 1 mg/ Thiamine HCl 100 mg/ Multivitamins/Vitamin C 10 ml/ Dextrose 1 ,011.2 mls @ 100 mls/hr IV DAILY [facility] Last Admin: 06/03/17 17:49 Dose: 100 mls/hr Pneumococcal Polyvalent Vaccine (Pneumovax 23 Vaccine) 0.5 ml IM .ONCE ONE Stop: 06/04/17 10:01 Rosuvastatin Calcium (Crestor) [address] [facility] Last Admin: 06/03/17 21:37 Dose: 10 mg - Labs Labs: 06/03/17 06:25 06/02/17 13:57 PT 10.4 SECONDS (9.7-12.2) 06/01/17 14:58 INR 0.9 06/01/17 14:58 APTT 30 SECONDS (21-34) 06/01/17 14:58 - Additional Findings Additional findings: Physical Exam: Vital Signs as below Const'l: awake alert & oriented x 4, no acute distress Head/Neck: neck supple, no jvd, trachea midline, carotid midline, no cervical/head mass Eyes: pupils equally reactive to light and accommodation, nonicteric sclera, extraocular intact ENT: +mucous membranes dry; auditory acuity grossly intact, throat not congested, no nasal deformity Cardio: regular rate, regular rhythm, no murmurs rubs gallops, no carotid bruit, normal s1, s2 Pulm: no accessory muscle use, equal normal breath sounds bilaterally, clear to ausculation bilaterally Abd: soft non tender non-distended, normal bowel sounds x 4 quadrants, no palpable masses Derm: no rashes, no ulcers, no lesions Extr: +visbily dry extremities; no edema, no cyanosis, no calf tenderness , no lesions, no varicosities Neuro: cranial nerves II-XII grossly intact, upper extremity and lower extremity 5/5 muscle strength bilaterally, no loss of sensation in upper extremities, lower extremities bilaterally and core Assessment and Plan - Assessment and Plan (Free Text) Assessment: Assessment and Plan 66 year old female with past medical history of hypertension and hyperlipidemia presents for chest pain radiating to left arm. Troponins and EKG negative for ACS. ECHO on this visit shows Asymmetric septal hypertrophy, Grade I-abnormal relaxation pattern, Mild AR and Aortic root is mildly enlarged, and Mild to moderate Pulmonary HTN. Patient has never had full cardiac work up. Patient is also dehydrated and hyponatremic. Chest pain likely 2/2 demand ischemia - ECHO, EKG, and Tropes as above - 10 year ASCVD risk is 11.7% - Patient's stress test is not indicative of ischemia - please see full report Dehydration - Per primary team Hyponatremia - Per primary team Hypertension - Amlodipine - Hydralazine prn GI/DVT PPXS - Per primary team Dispo: Patient is stable for discharge from a cardiac stand point
[2017-06-04 08:16] VITALS: O2SAT 98
[2017-06-04 08:17] VITALS: BP 138/70; PULSE 79; TEMP 97.6
[2017-06-04] MEDS: Folic Acid 1 MG, Thiamine 100 MG, Multivitamin (MVI) 10 ML in Dextrose 5% In Water 1,00... IV SCH (09:13)
[2017-06-04] MEDS ORDERED: Influenza Vaccine 60 mcg/0.5 mL SYR (4YR UP) IM ONE (10:00)
[2017-06-04] MEDS ORDERED: Pneumococcal 23-Valent Vaccine IM ONE (10:00)
--- NOTE | 2017-06-05 09:03 | CARD ---
APPROVED REPORT EKG Measurement Heart [id number] <Conclusion> Normal sinus rhythm rbbb Abnormal ECG
--- NOTE | 2017-06-05 10:11 | CARD ---
APPROVED REPORT Protocol: MAYA Test Type: Stress Nuclear Test Indications: CHEST PAIN Medications: NO LIST GIVEN Medical History: CHEST PAIN Target HR: 152 bpm Resting Heart Rate: 85 bpm Resting Blood Pressure: 142/80mmHg submaximum (85%): 129 bpm TEST SUMMARY PRETESTWARM-UP03:[id number]/80.0. EXERCISESTAGE 103:[id number]/80.0. EXERCISESTAGE 203:[id number]/80.0. EXERCISESTAGE 301:[id number]/80.1. QVUBKOVZ05:420.00.01.0.190/80.0. POST EXERCISE Target HR: No Max HR: 148 bpm 99% of Maximum Predicted HR: 152 bpm Exercise duration: 07:28 min:sec, 3 Stage Exercise capacity: 10.1METs Max Blood Pressure: 190/80mmHg Chest Pain: Yes, Angina index: 0 Arrhythmia: Yes, ST Change: Yes, Deviation: 0 mm EXAM: Myocardial Perfusion REST/STRESS Imaging Protocol The imaging protocol used to acquire images was Rest Tc-99m/stress Tc-99m 1 day Rest Spect myocardial perfusion imaging was performed in supine position 40 minutes following the injection of 13.1 mCi of Tc-99 Myoview. Gated Stress Spect was performed 42 minutes after intravenous 32.5 mCi Tc-99 Myoview injection. The images were gated to evaluate regional wall motion and calculate ventricular ejection fraction.Images were reconstructed using backfilter projection method in short horizontal and verticle long axis. Spect slices were generated. RESTING DATA EDV85.02moQP3.30L/min ESV19.00mlMyocardial Eqru719.00g Av. Heart Rate65.00bpm EF78.00% STRESS DATA EDV71.64cdZC0.00L/min ESV9.00mlMyocardial Sgfe197.00g EF87.00% Regional WT score at stress:1.00 Regional WM score at stress:0.00 Summed WT score at stress:2.00 Av. Heart Rate82.00bpmSummed WM score at stress:0.00 Study quality was good. Left Ventricular size was Normal at Rest and Stress. The rest and stress images show normal perfusion, normal contraction and thickening. LV Perf. Quant 17 Seg. SSS0.00 17 Seg. SRS0.00 17 Seg. SDS0.00 Stress Defect Extent (% LAD)0.00Rest Defect Extent (% LAD)0.00Rev. Defect Extent (% LAD)0.00 Stress Defect Extent (% LCX)0.00Rest Defect Extent (% LCX)0.00Rev. Defect Extent (% LCX)0.00 Stress Defect Extent (% RCA)0.00Rest Defect Extent (% RCA)0.00Rev. Defect Extent (% RCA)0.00 Stress Defect Extent (% MARK)0.00Rest Defect Extent (% MARK)0.00Rev. Defect Extent (% MARK)0.00 Other Information Quality:Good Overall Exercise Capacity: Good IMPRESSION Normal Myocardial Perfusion exercise stress study Left Ventricle LV Size/Shape: The left ventricle is normal size. Regional Wall Motion:There is normal left ventricular wall motion. Metabolism/Perfusion There are no defects. Conclusion 1. - No evidence of myocardial ischemia 2. - Normal LVEF
== END 2017-06-04 10:00 | disposition home or self-care (01) ==
LOC: C.ER 13:54 → C.9E 16:41 → C.6T 06-02 01:20
PROVIDERS: ADMIT Hospitalist; ATTEND Hospitalist
DX: E78.00 Pure hypercholesterolemia, unspecified (principal); I10 Essential (primary) hypertension; I27.20 Pulmonary hypertension, unspecified
CPT/HCPCS: 36415; 70450; 71045; 76700; 80053; 80061; 81001; 82150; 82550; 82553; 83036; 83605; 83690; 83735; 83880; 84100; 84443; 84484; 85025; 85610; 85730; 93005; 93306; 96360; 96372; 96374; 99285; C9113; G0378; J1644; J2405; J3411; J7040; J7070